=== PATIENT | female | born 1955 | race African-American/Black ===

== ENCOUNTER 2019-06-08 10:36 | Inpatient (IN) | payer MEDICAID ==
[~2019-06-08] VITALS: Ht 170.2 cm; Wt 87.8 kg
[~2019-06-08 10:36] MED LIST: AMLO5TAB9 PO; CINA30 PO; LEVO125 PO
[2019-06-08 12:55] VITALS: BP 129/69
[2019-06-08] MEDS ORDERED: ZOLPIDEM TARTRATE 10 MG TABLET PO PRN (13:00)
[2019-06-08] MEDS ORDERED: LORazepam 1 MG TABLET PO PRN (13:00)
[2019-06-08] MEDS ORDERED: HALOPERIDOL 5 MG TABLET PO PRN (13:00)
[2019-06-08] MEDS ORDERED: ALBUTEROL SULFATE HFA 90 MCG/PUFF 8 GM INHALER IH PRN (15:15)
[2019-06-08] MEDS ORDERED: NICOTINE 14 MG/24 HOUR PATCH TD PRN (15:15)
[2019-06-08] MEDS ORDERED: PETROLATUM,WHITE 28 GM JELLY TP PRN (15:15)
[2019-06-08] MEDS ORDERED: MAG HYDROX/AL HYDROX/SIMETH ES 30 ML SUSPENSION UDCUP PO PRN (15:15)
[2019-06-08] MEDS ORDERED: MAGNESIUM HYDROXIDE SUSPENSION 30 ML UDCUP PO PRN (15:15)
[2019-06-08] MEDS ORDERED: CloNIDine HCL 0.1 MG TABLET PO PRN (15:15)
[2019-06-08] MEDS ORDERED: LOPERAMIDE HCL 2 MG CAPSULE PO PRN (15:15)
[2019-06-08] MEDS ORDERED: DOCUSATE SODIUM 100 MG CAPSULE PO PRN (15:15)
[2019-06-08] MEDS ORDERED: GuaiFENesin/D-METHORPHAN [SUGAR-FREE] 200-20MG/10 ML SYRUP UDCUP PO PRN (15:15)
[2019-06-08] MEDS ORDERED: ONDANSETRON HCL 4 MG TABLET PO PRN (15:15)
[2019-06-08] MEDS ORDERED: ACETAMINOPHEN 325 MG TABLET PO PRN (15:15)
[2019-06-08 17:05] VITALS: BP 147/65
[2019-06-09 00:08] VITALS: BP 142/93
[2019-06-09 05:45] VITALS: BP 126/74
[2019-06-09] MEDS ORDERED: LEVOTHYROXINE SODIUM 25 MCG TABLET PO SCH (06:30)
[2019-06-09 07:31] LABS: BASOPHILS % (AUTO) 0.5 % (0.0-2.0); EOSINOPHILS % (AUTO) 1.4 % (1.0-6.0); HEMATOCRIT 32.4 % (36-46); LYMPHOCYTES # (AUTO) 2.2 K/uL (1.0-4.8); LYMPHOCYTES % (AUTO) 34.5 % (22.0-44.0); MEAN CORPUSCULAR HEMOGLOBIN 30.8 pg (26.0-34.0); MEAN CORPUSCULAR HGB CONC 33.9 G/dL (31.0-37.0); MEAN CORPUSCULAR VOLUME 91 fL (80-100); MONOCYTES # (AUTO) 0.7 K/uL (0.1-1.0); MONOCYTES % (AUTO) 10.7 % (2.0-9.0); NEUTROPHILS # (AUTO) 3.3 K/uL (1.8-7.7); NEUTROPHILS % (AUTO) 52.9 % (40.0-70.0); PLATELET COUNT (AUTO) 237 K/uL (150-450); RED BLOOD CELL COUNT(AUTO) 3.56 MIL/uL (4.00-5.20); RED CELL DISTRIBUTION WIDTH 12.6 % (11.5-14.5)
[2019-06-09 07:52] LABS: AMPHET/METH SCREEN,URINE NEGATIVE (NEGATIVE); BARBITURATE SCREEN, URINE NEGATIVE (NEGATIVE); BENZODIAZEPINES SCREEN,URINE NEGATIVE (NEGATIVE); CANNABINOID SCREEN,URINE NEGATIVE (NEGATIVE); COCAINE SCREEN,URINE NEGATIVE (NEGATIVE); METHADONE SCREEN, URINE NEGATIVE (NEGATIVE); OPIATE SCREEN,URINE NEGATIVE (NEGATIVE)
[2019-06-09 07:55] LABS: PHENCYCLIDINE SCREEN,URINE NEGATIVE (NEGATIVE)
[2019-06-09 07:55] LABS: ALANINE AMINOTRANSFERASE 36 U/L (12-78); ALBUMIN 3.3 g/dL (3.4-5.0); ALKALINE PHOSPHATASE 66 U/L (46-116); ANION GAP 7 mmol/L (8-16); ASPARTATE AMINOTRANSFERASE 56 U/L (15-37); BILIRUBIN,TOTAL 0.4 mg/dL (0.1-1.0); CALCIUM, TOTAL 9.8 mg/dL (8.8-10.5); CARBON DIOXIDE 27 mmol/L (22-29); CHLORIDE 107 mmol/L (98-107); CHOL/HDL RATIO 2.3 (3.9-5.7); CHOLESTEROL 133 mg/dL (131-200); FREE T4 (FREE THYROXINE) 1.06 ng/dL (0.76-1.46); GLOMERULAR FILTR. RATE CALC > 60 mL/min (>60); GLUCOSE,RANDOM 99 mg/dL (70-110); HDL CHOLESTEROL 57 mg/dL (40-60); LDL CHOL (CALC.) 67 mg/dL (0-130); POTASSIUM 3.4 mmol/L (3.5-5.1); SODIUM SERUM 141 mmol/L (136-145); THYROID STIMULATING HORMONE 11.14 uIU/mL (0.36-3.74); TOTAL PROTEIN, SERUM 6.5 g/dL (6.4-8.2); TRIGLYCERIDES 44 mg/dL (15-150); UREA NITROGEN, BLOOD 13 mg/dL (7-18)
[2019-06-09 07:58] LABS: APPEARANCE,URINE CLEAR (CLEAR); BILIRUBIN,URINE NEGATIVE (NEGATIVE); GLUCOSE, URINE (UA) NEGATIVE (NEGATIVE); KETONES,URINE NEGATIVE (NEGATIVE); LEUKOCYTE ESTERASE ,URINE NEGATIVE (NEGATIVE); NITRATE,URINE NEGATIVE (NEGATIVE); OCCULT BLOOD,URINE NEGATIVE (NEGATIVE); PROTEIN,URINE NEGATIVE (NEGATIVE); UROBILINOGEN,URINE 0.2 mg/dL (<=1.0)
[2019-06-09 07:58] LABS: HEMOGLOBIN A1C 5.4 % (4.5-6.2)
[2019-06-09 08:26] VITALS: BP 139/79
[2019-06-09] MEDS: AmLODIPine BESYLATE 5 MG TABLET PO SCH (08:58)
[2019-06-09] MEDS ORDERED: POTASSIUM CHLORIDE 20 MEQ ER TABLET PO ONE (09:15)
[2019-06-09] MEDS: ESCITALOPRAM OXALATE 10 MG TABLET PO SCH (12:28)
[2019-06-09] MEDS: OLANZapine 10 MG TABLET PO SCH ×2 (12:28→21:00)
[2019-06-09] MEDS ORDERED: ONDANSETRON HCL 4 MG TABLET PO PRN (12:30)
[2019-06-09] MEDS ORDERED: NICOTINE 14 MG/24 HOUR PATCH TD PRN (12:30)
[2019-06-09] MEDS ORDERED: GuaiFENesin/D-METHORPHAN [SUGAR-FREE] 200-20MG/10 ML SYRUP UDCUP PO PRN (12:30)
[2019-06-09] MEDS ORDERED: ACETAMINOPHEN 325 MG TABLET PO PRN (12:30)
[2019-06-09] MEDS ORDERED: DOCUSATE SODIUM 100 MG CAPSULE PO PRN (12:30)
[2019-06-09] MEDS ORDERED: CloNIDine HCL 0.1 MG TABLET PO PRN (12:30)
[2019-06-09] MEDS ORDERED: MAG HYDROX/AL HYDROX/SIMETH ES 30 ML SUSPENSION UDCUP PO PRN (12:30)
[2019-06-09] MEDS ORDERED: LOPERAMIDE HCL 2 MG CAPSULE PO PRN (12:30)
[2019-06-09] MEDS ORDERED: ALBUTEROL SULFATE HFA 90 MCG/PUFF 8 GM INHALER IH PRN (12:30)
[2019-06-09] MEDS ORDERED: MAGNESIUM HYDROXIDE SUSPENSION 30 ML UDCUP PO PRN (12:30)
[2019-06-09] MEDS ORDERED: PETROLATUM,WHITE 28 GM JELLY TP PRN (12:30)
[2019-06-09 16:13] VITALS: BP 140/73
[2019-06-10 04:55] VITALS: BP 131/86
[2019-06-10] MEDS: LEVOTHYROXINE SODIUM 125 MCG TABLET PO SCH (06:29)
[2019-06-10 07:40] LABS: BASOPHILS % (AUTO) 1.2 % (0.0-2.0); EOSINOPHILS % (AUTO) 4.8 % (1.0-6.0); HEMATOCRIT 31.8 % (36-46); HEMOGLOBIN 10.7 g/dL (12.0-16.0); LYMPHOCYTES # (AUTO) 1.5 K/uL (1.0-4.8); LYMPHOCYTES % (AUTO) 41.3 % (22.0-44.0); MEAN CORPUSCULAR HEMOGLOBIN 30.9 pg (26.0-34.0); MEAN CORPUSCULAR HGB CONC 33.6 G/dL (31.0-37.0); MEAN CORPUSCULAR VOLUME 92 fL (80-100); MONOCYTES # (AUTO) 0.5 K/uL (0.1-1.0); MONOCYTES % (AUTO) 13.9 % (2.0-9.0); NEUTROPHILS # (AUTO) 1.4 K/uL (1.8-7.7); NEUTROPHILS % (AUTO) 38.8 % (40.0-70.0); PLATELET COUNT (AUTO) 222 K/uL (150-450); RED BLOOD CELL COUNT(AUTO) 3.46 MIL/uL (4.00-5.20); RED CELL DISTRIBUTION WIDTH 12.7 % (11.5-14.5)
[2019-06-10 08:35] VITALS: BP 135/71
[2019-06-10] MEDS: ESCITALOPRAM OXALATE 10 MG TABLET PO SCH (09:00)
[2019-06-10] MEDS: AmLODIPine BESYLATE 5 MG TABLET PO SCH (09:00)
[2019-06-10] MEDS: OLANZapine 10 MG TABLET PO SCH ×2 (09:00→21:00)
[2019-06-10] MEDS: FERROUS SULFATE 325 MG EC TABLET PO SCH ×2 (12:43→16:56)
[2019-06-10 17:54] VITALS: BP 140/65
[2019-06-11] VITALS: BP 135/86
[2019-06-11] MEDS: LEVOTHYROXINE SODIUM 125 MCG TABLET PO SCH (06:35)
[2019-06-11] MEDS: FERROUS SULFATE 325 MG EC TABLET PO SCH ×3 (07:00→16:40)
[2019-06-11] MEDS: OLANZapine 10 MG TABLET PO SCH ×2 (08:23→20:35)
[2019-06-11] MEDS: AmLODIPine BESYLATE 5 MG TABLET PO SCH (08:23)
[2019-06-11] MEDS: ESCITALOPRAM OXALATE 10 MG TABLET PO SCH (08:23)
[2019-06-11 08:30] VITALS: BP 138/70
[2019-06-11 16:16] VITALS: BP 125/71
[2019-06-12 00:36] VITALS: BP 145/81
[2019-06-12] MEDS: FERROUS SULFATE 325 MG EC TABLET PO SCH ×3 (06:36→16:51)
[2019-06-12] MEDS: LEVOTHYROXINE SODIUM 125 MCG TABLET PO SCH (06:36)
[2019-06-12 08:22] VITALS: BP 130/78
[2019-06-12] MEDS: ESCITALOPRAM OXALATE 10 MG TABLET PO SCH (08:39)
[2019-06-12] MEDS: AmLODIPine BESYLATE 5 MG TABLET PO SCH (08:40)
[2019-06-12] MEDS: OLANZapine 10 MG TABLET PO SCH ×2 (08:40→21:00)
[2019-06-12 16:00] VITALS: BP 139/82
[2019-06-13 06:34] VITALS: BP 139/78
[2019-06-13] MEDS: LEVOTHYROXINE SODIUM 125 MCG TABLET PO SCH (06:44)
[2019-06-13] MEDS: FERROUS SULFATE 325 MG EC TABLET PO SCH ×3 (06:44→17:00)
[2019-06-13] MEDS: ESCITALOPRAM OXALATE 10 MG TABLET PO SCH (09:00)
[2019-06-13] MEDS: OLANZapine 10 MG TABLET PO SCH ×2 (09:00→21:00)
[2019-06-13] MEDS: AmLODIPine BESYLATE 5 MG TABLET PO SCH (09:00)
[2019-06-13 09:35] VITALS: BP 142/77
[2019-06-14 00:55] VITALS: BP 145/84
[2019-06-14] MEDS: LEVOTHYROXINE SODIUM 125 MCG TABLET PO SCH (06:44)
[2019-06-14] MEDS: FERROUS SULFATE 325 MG EC TABLET PO SCH ×3 (06:44→16:55)
[2019-06-14] MEDS: OLANZapine 10 MG TABLET PO SCH ×2 (08:56→20:21)
[2019-06-14] MEDS: ESCITALOPRAM OXALATE 10 MG TABLET PO SCH (08:56)
[2019-06-14] MEDS: AmLODIPine BESYLATE 5 MG TABLET PO SCH (08:56)
[2019-06-15 00:37] VITALS: BP 158/77
[2019-06-15] MEDS: FERROUS SULFATE 325 MG EC TABLET PO SCH ×3 (06:36→17:00)
[2019-06-15] MEDS: LEVOTHYROXINE SODIUM 125 MCG TABLET PO SCH (06:36)
[2019-06-15 08:11] VITALS: BP 154/87
[2019-06-15] MEDS: ESCITALOPRAM OXALATE 10 MG TABLET PO SCH ×2 (08:43→09:00)
[2019-06-15] MEDS: AmLODIPine BESYLATE 5 MG TABLET PO SCH ×2 (08:43→09:00)
[2019-06-15] MEDS: OLANZapine 10 MG TABLET PO SCH ×3 (08:43→20:40)
[2019-06-15 16:33] VITALS: BP 142/91
[2019-06-16 03:43] VITALS: BP 140/90
[2019-06-16] MEDS: LEVOTHYROXINE SODIUM 125 MCG TABLET PO SCH (06:32)
[2019-06-16] MEDS: FERROUS SULFATE 325 MG EC TABLET PO SCH ×3 (06:48→16:42)
[2019-06-16 08:25] VITALS: BP 156/77
[2019-06-16] MEDS: AmLODIPine BESYLATE 5 MG TABLET PO SCH (08:41)
[2019-06-16] MEDS: ESCITALOPRAM OXALATE 10 MG TABLET PO SCH (08:41)
[2019-06-16] MEDS: OLANZapine 10 MG TABLET PO SCH ×2 (08:41→21:00)
[2019-06-16 16:29] VITALS: BP 178/78
[2019-06-16 21:31] VITALS: BP 140/76
[2019-06-17 05:56] VITALS: BP 143/77
[2019-06-17] MEDS: LEVOTHYROXINE SODIUM 125 MCG TABLET PO SCH ×2 (06:30→06:36)
[2019-06-17] MEDS: FERROUS SULFATE 325 MG EC TABLET PO SCH ×4 (06:36→17:00)
[2019-06-17] MEDS: OLANZapine 10 MG TABLET PO SCH ×2 (09:00→21:00)
[2019-06-17] MEDS: ESCITALOPRAM OXALATE 10 MG TABLET PO SCH (09:00)
[2019-06-17] MEDS: AmLODIPine BESYLATE 5 MG TABLET PO SCH (09:00)
[2019-06-17 16:08] VITALS: BP 141/93
[2019-06-18] MEDS: LEVOTHYROXINE SODIUM 125 MCG TABLET PO SCH (06:30)
[2019-06-18] MEDS: FERROUS SULFATE 325 MG EC TABLET PO SCH ×3 (06:35→17:00)
[2019-06-18 06:44] VITALS: BP 133/78
[2019-06-18 08:18] VITALS: BP 137/86
[2019-06-18] MEDS ORDERED: HALOPERIDOL LACTATE 5 MG/ML VIAL IM PRN (09:00)
[2019-06-18] MEDS: OLANZapine 10 MG TABLET PO SCH ×2 (11:07→20:30)
[2019-06-18] MEDS: ESCITALOPRAM OXALATE 10 MG TABLET PO SCH (11:07)
[2019-06-18] MEDS: AmLODIPine BESYLATE 5 MG TABLET PO SCH (11:07)
[2019-06-18 16:09] VITALS: BP 133/73
[2019-06-19] MEDS ORDERED: OLAN10TA3 PO (02:57)
[2019-06-19] MEDS ORDERED: ESCI10TA PO (03:01)
[2019-06-19 05:29] VITALS: BP 158/87
[2019-06-19] MEDS: LEVOTHYROXINE SODIUM 125 MCG TABLET PO SCH (06:37)
[2019-06-19] MEDS: FERROUS SULFATE 325 MG EC TABLET PO SCH ×3 (06:37→17:21)
[2019-06-19 08:32] VITALS: BP 140/71
[2019-06-19] MEDS: OLANZapine 10 MG TABLET PO SCH ×2 (08:54→20:23)
[2019-06-19] MEDS: AmLODIPine BESYLATE 5 MG TABLET PO SCH (08:54)
[2019-06-19] MEDS: ESCITALOPRAM OXALATE 10 MG TABLET PO SCH (08:54)
[2019-06-19 16:17] VITALS: BP 127/57
[2019-06-20 00:37] VITALS: BP 144/70
[2019-06-20] MEDS: FERROUS SULFATE 325 MG EC TABLET PO SCH ×3 (06:27→17:09)
[2019-06-20] MEDS: LEVOTHYROXINE SODIUM 125 MCG TABLET PO SCH (06:27)
[2019-06-20] MEDS: ESCITALOPRAM OXALATE 10 MG TABLET PO SCH (08:29)
[2019-06-20] MEDS: OLANZapine 10 MG TABLET PO SCH ×2 (08:29→20:20)
[2019-06-20] MEDS: AmLODIPine BESYLATE 5 MG TABLET PO SCH (08:29)
[2019-06-20 08:36] VITALS: BP 122/70
[2019-06-20 16:09] VITALS: BP 140/78
[2019-06-21 02:52] VITALS: BP 147/85
[2019-06-21] MEDS: LEVOTHYROXINE SODIUM 125 MCG TABLET PO SCH (07:06)
[2019-06-21] MEDS: FERROUS SULFATE 325 MG EC TABLET PO SCH ×3 (07:06→16:11)
[2019-06-21 08:20] VITALS: BP 137/89
[2019-06-21] MEDS: OLANZapine 10 MG TABLET PO SCH ×2 (08:43→20:30)
[2019-06-21] MEDS: ESCITALOPRAM OXALATE 10 MG TABLET PO SCH (08:43)
[2019-06-21] MEDS: AmLODIPine BESYLATE 5 MG TABLET PO SCH (08:49)
[2019-06-21 16:14] VITALS: BP 140/70
[2019-06-22 02:22] VITALS: BP 140/87
[2019-06-22] MEDS: LEVOTHYROXINE SODIUM 125 MCG TABLET PO SCH (06:39)
[2019-06-22] MEDS: FERROUS SULFATE 325 MG EC TABLET PO SCH ×3 (06:39→17:00)
[2019-06-22 07:40] LABS: BASOPHILS % (AUTO) 0.9 % (0.0-2.0); EOSINOPHILS % (AUTO) 2.2 % (1.0-6.0); HEMATOCRIT 33.9 % (36-46); HEMOGLOBIN 11.3 g/dL (12.0-16.0); LYMPHOCYTES # (AUTO) 1.9 K/uL (1.0-4.8); LYMPHOCYTES % (AUTO) 37.9 % (22.0-44.0); MEAN CORPUSCULAR HEMOGLOBIN 30.9 pg (26.0-34.0); MEAN CORPUSCULAR HGB CONC 33.4 G/dL (31.0-37.0); MEAN CORPUSCULAR VOLUME 93 fL (80-100); MONOCYTES # (AUTO) 0.5 K/uL (0.1-1.0); MONOCYTES % (AUTO) 10.8 % (2.0-9.0); NEUTROPHILS # (AUTO) 2.4 K/uL (1.8-7.7); NEUTROPHILS % (AUTO) 48.2 % (40.0-70.0); PLATELET COUNT (AUTO) 259 K/uL (150-450); RED BLOOD CELL COUNT(AUTO) 3.66 MIL/uL (4.00-5.20); RED CELL DISTRIBUTION WIDTH 13.1 % (11.5-14.5)
[2019-06-22 08:40] VITALS: BP 136/74
[2019-06-22] MEDS: OLANZapine 10 MG TABLET PO SCH ×2 (09:00→21:00)
[2019-06-22] MEDS: AmLODIPine BESYLATE 5 MG TABLET PO SCH (09:00)
[2019-06-22] MEDS: ESCITALOPRAM OXALATE 10 MG TABLET PO SCH (09:00)
[2019-06-22 16:14] VITALS: BP 142/70
[2019-06-23 04:06] VITALS: BP 155/73
[2019-06-23] MEDS: LEVOTHYROXINE SODIUM 125 MCG TABLET PO SCH (06:50)
[2019-06-23] MEDS: FERROUS SULFATE 325 MG EC TABLET PO SCH ×3 (06:50→17:21)
[2019-06-23 08:32] VITALS: BP 157/85
[2019-06-23] MEDS: ESCITALOPRAM OXALATE 10 MG TABLET PO SCH (08:42)
[2019-06-23] MEDS: AmLODIPine BESYLATE 5 MG TABLET PO SCH (08:42)
[2019-06-23] MEDS: OLANZapine 10 MG TABLET PO SCH ×2 (08:42→20:58)
[2019-06-23 16:26] VITALS: BP 146/75
[2019-06-24 04:50] VITALS: BP 140/67
[2019-06-24] MEDS: LEVOTHYROXINE SODIUM 125 MCG TABLET PO SCH (06:40)
[2019-06-24] MEDS: FERROUS SULFATE 325 MG EC TABLET PO SCH ×3 (06:40→11:51)
[2019-06-24] MEDS: OLANZapine 10 MG TABLET PO SCH (08:26)
[2019-06-24] MEDS: ESCITALOPRAM OXALATE 10 MG TABLET PO SCH (08:27)
[2019-06-24] MEDS: AmLODIPine BESYLATE 5 MG TABLET PO SCH (08:27)
[2019-06-24 08:30] VITALS: BP 154/81
== END 2019-06-24 15:05 | disposition left against medical advice (07) | DRG 750 ==
LOC: B2S 13:02
PROVIDERS: ADMIT Psychiatry & Neurology Child & Adolescent Psychiatry; ATTEND Psychiatry & Neurology Child & Adolescent Psychiatry
DX: F20.0 Paranoid schizophrenia (principal); D72.819 Decreased white blood cell count, unspecified; E03.9 Hypothyroidism, unspecified; E87.6 Hypokalemia; F10.10 Alcohol abuse, uncomplicated; F32.9 Major depressive disorder, single episode, unspecified; F41.9 Anxiety disorder, unspecified; I10 Essential (primary) hypertension; K59.00 Constipation, unspecified; Z90.710 Acquired absence of both cervix and uterus; M54.9 Dorsalgia, unspecified; G89.29 Other chronic pain; Z53.29 Procedure and treatment not carried out because of patient's decision for other reasons
CPT/HCPCS: 80307; 83036; 84132; 84439; 84443; 87081; J1630

== ENCOUNTER 2019-11-30 13:28 | Emergency (ER) | payer MEDICAID, OTHER ==
[~2019-11-30] VITALS: Ht 175.3 cm; Wt 100.0 kg
[2019-11-30 15:50] LABS: EOSINOPHILS % (AUTO) 2.9 % (1.0-6.0); HEMATOCRIT 31.2 % (36-46); HEMOGLOBIN 10.3 g/dL (12.0-16.0); LYMPHOCYTES % (AUTO) 37.1 % (22.0-44.0); MEAN CORPUSCULAR VOLUME 94 fL (80-100); MONOCYTES # (AUTO) 0.6 K/uL (0.1-1.0); MONOCYTES % (AUTO) 11.1 % (2.0-9.0); NEUTROPHILS # (AUTO) 2.6 K/uL (1.8-7.7); NEUTROPHILS % (AUTO) 47.9 % (40.0-70.0); PLATELET COUNT (AUTO) 217 K/uL (150-450); RED BLOOD CELL COUNT(AUTO) 3.33 MIL/uL (4.00-5.20); RED CELL DISTRIBUTION WIDTH 13.4 % (11.5-14.5)
[2019-11-30 16:07] LABS: ANION GAP 10 mmol/L (8-16); CARBON DIOXIDE 26 mmol/L (22-29); CHLORIDE 108 mmol/L (98-107); CREATININE 1.08 mg/dL (0.60-1.30); GLOMERULAR FILTR. RATE CALC > 60 mL/min (>60); GLUCOSE,RANDOM 104 mg/dL (70-110); POTASSIUM 3.8 mmol/L (3.5-5.1); SODIUM SERUM 144 mmol/L (136-145); UREA NITROGEN, BLOOD 15 mg/dL (7-18)
[2019-11-30 16:10] LABS: B-TYPE NATRIURETIC PEPTIDE 181 pg/mL (0-100)
[2019-11-30 16:15] LABS: ALANINE AMINOTRANSFERASE 80 U/L (12-78); ALKALINE PHOSPHATASE 91 U/L (46-116); ASPARTATE AMINOTRANSFERASE 55 U/L (15-37); BILIRUBIN,TOTAL 0.3 mg/dL (0.1-1.0); FREE T4 (FREE THYROXINE) 0.89 ng/dL (0.76-1.46); THYROID STIMULATING HORMONE 3.19 uIU/mL (0.36-3.74); TOTAL PROTEIN, SERUM 6.5 g/dL (6.4-8.2)
[2019-11-30 16:24] VITALS: BP 146/76
== END 2019-11-30 16:59 | disposition home or self-care (01) ==
LOC: EMS 13:31
DX: M79.89 Other specified soft tissue disorders (principal); J02.9 Acute pharyngitis, unspecified; F31.9 Bipolar disorder, unspecified; E03.9 Hypothyroidism, unspecified
CPT/HCPCS: 84439; 84443; 93005

== ENCOUNTER 2021-06-15 13:02 | Emergency (ER) | payer MEDICARE, OTHER | END 2021-06-15 14:14 | disposition left against medical advice (07) | LOC: EMS 13:02 | DX: J02.9 Acute pharyngitis, unspecified (principal); Z53.21 Procedure and treatment not carried out due to patient leaving prior to being seen by health care provider ==

== ENCOUNTER 2021-12-26 17:52 | Inpatient (IN) | payer MEDICARE, OTHER ==
[~2021-12-26] VITALS: Ht 172.7 cm; Wt 96.5 kg
[2021-12-26 18:56] LABS: AMPHET/METH SCREEN,URINE NEGATIVE (NEGATIVE); BARBITURATE SCREEN, URINE NEGATIVE (NEGATIVE); BENZODIAZEPINES SCREEN,URINE NEGATIVE (NEGATIVE); CANNABINOID SCREEN,URINE NEGATIVE (NEGATIVE); COCAINE SCREEN,URINE NEGATIVE (NEGATIVE); METHADONE SCREEN, URINE NEGATIVE (NEGATIVE); OPIATE SCREEN,URINE NEGATIVE (NEGATIVE); PHENCYCLIDINE SCREEN,URINE NEGATIVE (NEGATIVE)
[2021-12-26] MEDS ORDERED: SODIUM CHLORIDE 0.9% 1,000 ML IV ONE ×3 (19:00→20:30)
[2021-12-26 19:41] LABS: COVID AG,FIA SOURCE NASOPHARYNGEAL
[2021-12-26 19:47] LABS: BASOPHILS % (AUTO) 0.2 % (0.0-2.0); EOSINOPHILS % (AUTO) 0 % (1.0-6.0); HEMATOCRIT 43.2 % (36-46); HEMOGLOBIN 14.2 g/dL (12.0-16.0); LYMPHOCYTES # (AUTO) 1.2 K/uL (1.0-4.8); LYMPHOCYTES % (AUTO) 9.1 % (22.0-44.0); MEAN CORPUSCULAR HEMOGLOBIN 29.5 pg (26.0-34.0); MEAN CORPUSCULAR HGB CONC 32.8 G/dL (31.0-37.0); MEAN CORPUSCULAR VOLUME 90 fL (80-100); MONOCYTES # (AUTO) 1.2 K/uL (0.1-1.0); MONOCYTES % (AUTO) 8.9 % (2.0-9.0); NEUTROPHILS # (AUTO) 11.1 K/uL (1.8-7.7); NEUTROPHILS % (AUTO) 81.8 % (40.0-70.0); PLATELET COUNT (AUTO) 137 K/uL (150-450); RED CELL DISTRIBUTION WIDTH 13.4 % (11.5-14.5)
[2021-12-26 19:54] LABS: ANION GAP 17 mmol/L (8-16); CALCIUM, TOTAL 11.4 mg/dL (8.8-10.5); CARBON DIOXIDE 20 mmol/L (22-29); CHLORIDE 118 mmol/L (98-107); GLUCOSE,RANDOM 144 mg/dL (70-110); SODIUM SERUM 155 mmol/L (136-145); UREA NITROGEN, BLOOD 73 mg/dL (7-18)
[2021-12-26 19:56] LABS: GLOMERULAR FILTR. RATE CALC 14 mL/min (>60)
[2021-12-26 20:01] LABS: AMMONIA 29 umol/L (11-32)
[2021-12-26 20:09] LABS: ALANINE AMINOTRANSFERASE 88 U/L (12-78); ALBUMIN 3.9 g/dL (3.4-5.0); ALKALINE PHOSPHATASE 64 U/L (46-116); ASPARTATE AMINOTRANSFERASE 385 U/L (15-37); BILIRUBIN,TOTAL 1.5 mg/dL (0.1-1.0); TOTAL PROTEIN, SERUM 8.7 g/dL (6.4-8.2)
[2021-12-26 20:12] LABS: CREATINE KINASE, TOTAL ONLY 19269 U/L (26-192)
[2021-12-26] MEDS ORDERED: ONDANSETRON HCL 4 MG/2 ML VIAL IVP PRN ×2 (20:30→20:45)
[2021-12-26] MEDS ORDERED: ACETAMINOPHEN 325 MG TABLET PO PRN (20:30)
[2021-12-26 20:52] LABS: APPEARANCE,URINE CLEAR (CLEAR); GLUCOSE, URINE (UA) NEGATIVE (NEGATIVE); LEUKOCYTE ESTERASE ,URINE NEGATIVE (NEGATIVE); NITRATE,URINE NEGATIVE (NEGATIVE); OCCULT BLOOD,URINE LARGE (NEGATIVE); PH,URINE 5.5 (5.0-8.0); PROTEIN,URINE 100-200,SEE CONFIRM mg/dL (NEGATIVE); SPECIFIC GRAVITIY, URINE 1.029 (1.003-1.030)
[2021-12-26 20:59] LABS: AMPHET/METH SCREEN,URINE NEGATIVE (NEGATIVE); BARBITURATE SCREEN, URINE NEGATIVE (NEGATIVE); BENZODIAZEPINES SCREEN,URINE NEGATIVE (NEGATIVE); CANNABINOID SCREEN,URINE NEGATIVE (NEGATIVE); COCAINE SCREEN,URINE NEGATIVE (NEGATIVE); METHADONE SCREEN, URINE NEGATIVE (NEGATIVE); OPIATE SCREEN,URINE NEGATIVE (NEGATIVE)
[2021-12-26 21:12] LABS: BILIRUBIN,URINE SMALL (NEGATIVE)
[2021-12-26 21:13] LABS: PHENCYCLIDINE SCREEN,URINE NEGATIVE (NEGATIVE)
[2021-12-26 21:19] LABS: THYROID STIMULATING HORMONE 0.31 uIU/mL (0.36-3.74)
[2021-12-26 21:22] LABS: INR 1.1 (0.9-1.1); PROTHROMBIN TIME 11.9 SEC (9.4-11.6)
[2021-12-26] MEDS ORDERED: DEXTROSE 5%-WATER 1,000 ML IV ONE (21:30)
[2021-12-26 22:04] LABS: BACTERIA,URINE Few /HPF (None Seen); RBC,URINE 0-2 /HPF (0-2); SULFOSALICYLIC ACID,URINE 2+ (Negative); WBC,URINE 0-2 /HPF (0-5)
[2021-12-26 22:06] LABS: COARSE GRANULAR CASTS,URINE 0-2 /LPF (None Seen)
[2021-12-26] MEDS: SODIUM CHLORIDE 0.45% 1,000 ML IV SCH (23:00)
[2021-12-26] MEDS: DOCUSATE SODIUM 100 MG CAPSULE PO SCH (23:00)
[2021-12-26 23:34] VITALS: BP 115/65
[2021-12-26] MEDS: PANTOPRAZOLE SODIUM 40 MG/VIAL IVP SCH (23:42)
[2021-12-26] MEDS: HEPARIN SODIUM,PORCINE 5,000 UNITS/ML VIAL SQ SCH (23:42)
[2021-12-27 05:14] VITALS: BP 140/77
[2021-12-27 05:52] LABS: BASOPHILS % (AUTO) 0.2 % (0.0-2.0); EOSINOPHILS % (AUTO) 0 % (1.0-6.0); HEMATOCRIT 37.3 % (36-46); HEMOGLOBIN 12.6 g/dL (12.0-16.0); LYMPHOCYTES # (AUTO) 1.5 K/uL (1.0-4.8); LYMPHOCYTES % (AUTO) 14.1 % (22.0-44.0); MEAN CORPUSCULAR HEMOGLOBIN 30.4 pg (26.0-34.0); MEAN CORPUSCULAR HGB CONC 33.7 G/dL (31.0-37.0); MEAN CORPUSCULAR VOLUME 90 fL (80-100); MONOCYTES # (AUTO) 0.9 K/uL (0.1-1.0); NEUTROPHILS # (AUTO) 8.4 K/uL (1.8-7.7); NEUTROPHILS % (AUTO) 77.7 % (40.0-70.0); PLATELET COUNT (AUTO) 101 K/uL (150-450); RED BLOOD CELL COUNT(AUTO) 4.14 MIL/uL (4.00-5.20); RED CELL DISTRIBUTION WIDTH 13.7 % (11.5-14.5)
[2021-12-27 05:58] LABS: APPEARANCE,URINE HAZY (CLEAR); BILIRUBIN,URINE NEGATIVE (NEGATIVE); GLUCOSE, URINE (UA) NEGATIVE (NEGATIVE); KETONES,URINE TRACE mg/dL (NEGATIVE); LEUKOCYTE ESTERASE ,URINE NEGATIVE (NEGATIVE); NITRATE,URINE NEGATIVE (NEGATIVE); OCCULT BLOOD,URINE LARGE (NEGATIVE); PH,URINE 5.5 (5.0-8.0); PROTEIN,URINE 100-200,SEE CONFIRM mg/dL (NEGATIVE); SPECIFIC GRAVITIY, URINE 1.026 (1.003-1.030); UROBILINOGEN,URINE <=1.0 mg/dL (<=1.0)
[2021-12-27 06:06] LABS: BILIRUBIN,TOTAL 1.1 mg/dL (0.1-1.0); CALCIUM, TOTAL 10.1 mg/dL (8.8-10.5); CREATININE 2.93 mg/dL (0.60-1.30); POTASSIUM 3.6 mmol/L (3.5-5.1); TOTAL PROTEIN, SERUM 7.2 g/dL (6.4-8.2)
[2021-12-27 06:12] LABS: BACTERIA,URINE None Seen /HPF (None Seen); COARSE GRANULAR CASTS,URINE 0-2 /LPF (None Seen); WBC,URINE 0-2 /HPF (0-5)
[2021-12-27] MEDS: SODIUM CHLORIDE 0.45% 1,000 ML IV SCH (06:45)
[2021-12-27 07:35] VITALS: BP 141/73
[2021-12-27] MEDS: DOCUSATE SODIUM 100 MG CAPSULE PO SCH ×2 (08:46→20:03)
[2021-12-27] MEDS: PANTOPRAZOLE SODIUM 40 MG/VIAL IVP SCH (08:57)
[2021-12-27] MEDS: HEPARIN SODIUM,PORCINE 5,000 UNITS/ML VIAL SQ SCH ×2 (08:57→16:07)
[2021-12-27] MEDS ORDERED: DIGOXIN 250 MCG/ML 2 ML AMP IVP ONE (11:30)
[2021-12-27] MEDS ORDERED: AMIODARONE HCL 150 MG in DEXTROSE 5%-WATER 97 ML IV ONE (11:45)
[2021-12-27] MEDS ORDERED: AMIODARONE HCL 360 MG in DEXTROSE 5%-WATER 242.8 ML IV ONE (11:45)
[2021-12-27 11:48] VITALS: BP 105/66
[2021-12-27 16:05] VITALS: BP 131/69
[2021-12-27 17:32] LABS: CREATININE 2.4 mg/dL (0.60-1.30); MAGNESIUM 2.3 mg/dL (1.80-2.40); PHOSPHORUS 1.8 mg/dL (2.5-4.9); POTASSIUM 3.8 mmol/L (3.5-5.1)
[2021-12-27] MEDS ORDERED: AMIODARONE HCL 540 MG in DEXTROSE 5%-WATER 239.2 ML IV ONE (17:45)
[2021-12-27 18:27] LABS: CREATININE,URINE RANDOM 174.2 mg/dL (30.0-125.0)
[2021-12-27 20:15] VITALS: BP 127/65
[2021-12-27] MEDS ORDERED: DEXTROSE 5%-0.45% SODIUM CHL 1,000 ML IV ONE (22:00)
[2021-12-28] MEDS: HEPARIN SODIUM,PORCINE 5,000 UNITS/ML VIAL SQ SCH ×4 (00:22→23:57)
[2021-12-28 00:28] VITALS: BP 122/62
[2021-12-28 04:36] VITALS: BP 115/64
[2021-12-28 07:19] VITALS: BP 138/80
[2021-12-28] MEDS: DOCUSATE SODIUM 100 MG CAPSULE PO SCH ×3 (08:16→20:13)
[2021-12-28] MEDS: PANTOPRAZOLE SODIUM 40 MG/VIAL IVP SCH (09:00)
[2021-12-28 09:19] LABS: CALCIUM, TOTAL 9.8 mg/dL (8.8-10.5); CREATININE 1.68 mg/dL (0.60-1.30); MAGNESIUM 2.2 mg/dL (1.80-2.40); PHOSPHORUS 1.7 mg/dL (2.5-4.9); POTASSIUM 3.7 mmol/L (3.5-5.1)
[2021-12-28] MEDS ORDERED: SODIUM PHOS,M-BASIC-D-BASIC 30 MMOL in DEXTROSE 5%-WATER 250 ML IV ONE (10:45)
[2021-12-28 11:30] VITALS: BP 122/73
[2021-12-28] MEDS ORDERED: AMIODARONE HCL 750 MG in DEXTROSE 5%-WATER 485 ML IV SCH (11:45)
[2021-12-28 20:05] VITALS: BP 123/63
[2021-12-29 00:21] VITALS: BP 139/78
[2021-12-29 04:54] VITALS: BP 119/68
[2021-12-29 07:34] VITALS: BP 132/70
[2021-12-29] MEDS: HEPARIN SODIUM,PORCINE 5,000 UNITS/ML VIAL SQ SCH ×2 (08:00→16:00)
[2021-12-29] MEDS: PANTOPRAZOLE SODIUM 40 MG/VIAL IVP SCH (08:36)
[2021-12-29] MEDS: METOPROLOL SUCCINATE 25 MG ER TABLET PO SCH (08:36)
[2021-12-29] MEDS: DOCUSATE SODIUM 100 MG CAPSULE PO SCH ×2 (08:36→21:00)
[2021-12-29 11:24] VITALS: BP 117/78
[2021-12-29 15:32] VITALS: BP 132/72
[2021-12-29 20:04] VITALS: BP 120/66
[2021-12-29] MEDS: SODIUM CHLORIDE 0.45% 1,000 ML IV SCH (23:45)
[2021-12-30] VITALS (7 sets, daily range): BP systolic 131–150; BP diastolic 65–77
[2021-12-30] MEDS: HEPARIN SODIUM,PORCINE 5,000 UNITS/ML VIAL SQ SCH ×3 (08:00→16:00)
[2021-12-30 08:37] LABS: GLUCOMETER DEV NAME(LOC) 5N.1C; GLUCOSE,POINT OF CARE 109 MG/DL (70-110)
[2021-12-30] MEDS: DOCUSATE SODIUM 100 MG CAPSULE PO SCH ×2 (09:00→21:00)
[2021-12-30] MEDS: PANTOPRAZOLE SODIUM 40 MG/VIAL IVP SCH (09:00)
[2021-12-30] MEDS: METOPROLOL SUCCINATE 25 MG ER TABLET PO SCH (09:13)
[2021-12-30] MEDS: SODIUM CHLORIDE 0.45% 1,000 ML IV SCH ×2 (09:27→19:45)
[2021-12-30] MEDS: ACETAMINOPHEN 325 MG TABLET PO PRN (20:57)
[2021-12-31 04:32] VITALS: BP 139/73
[2021-12-31] MEDS: SODIUM CHLORIDE 0.45% 1,000 ML IV SCH (05:30)
[2021-12-31 06:02] LABS: CALCIUM, TOTAL 9.5 mg/dL (8.8-10.5); CREATININE 1.2 mg/dL (0.60-1.30); MAGNESIUM 1.6 mg/dL (1.80-2.40); PHOSPHORUS 2.2 mg/dL (2.5-4.9)
[2021-12-31] MEDS ORDERED: MAGNESIUM SULFATE 4 GM/WATER 100 ML IV PRN (06:45)
[2021-12-31] MEDS ORDERED: MAGNESIUM SULFATE 2 GM/WATER 50 ML IV PRN (06:45)
[2021-12-31 07:06] LABS: ALBUMIN 2.4 g/dL (3.4-5.0)
[2021-12-31 07:22] VITALS: BP 144/67
[2021-12-31] MEDS: HEPARIN SODIUM,PORCINE 5,000 UNITS/ML VIAL SQ SCH ×5 (08:00→23:51)
[2021-12-31] MEDS: METOPROLOL SUCCINATE 25 MG ER TABLET PO SCH (08:10)
[2021-12-31] MEDS: POTASSIUM CHLORIDE 20 MEQ ER TABLET PO PRN (08:10)
[2021-12-31] MEDS: MAGNESIUM OXIDE 400 MG TABLET PO PRN ×2 (08:10→17:22)
[2021-12-31] MEDS: DOCUSATE SODIUM 100 MG CAPSULE PO SCH ×2 (08:12→21:00)
[2021-12-31] MEDS: PANTOPRAZOLE SODIUM 40 MG/VIAL IVP SCH (08:12)
[2021-12-31] MEDS ORDERED: SODIUM CHLORIDE 0.9% 250 ML IV ONE (09:00)
[2021-12-31] MEDS: POTASSIUM CHL 10 MEQ/WATER 50 ML IV PRN ×4 (09:23→14:15)
[2021-12-31 15:49] VITALS: BP 160/74
[2022-01-01 04:20] VITALS: BP 109/63
[2022-01-01 06:20] LABS: ANION GAP 10 mmol/L (8-16); CALCIUM, TOTAL 9.9 mg/dL (8.8-10.5); CARBON DIOXIDE 22 mmol/L (22-29); CHLORIDE 106 mmol/L (98-107); CREATININE 1.08 mg/dL (0.60-1.30); GLUCOSE,RANDOM 90 mg/dL (70-110); SODIUM SERUM 138 mmol/L (136-145); UREA NITROGEN, BLOOD 9 mg/dL (7-18)
[2022-01-01 07:35] VITALS: BP 127/58
[2022-01-01 07:40] LABS: GLOMERULAR FILTR. RATE CALC > 60 mL/min (>60); POTASSIUM 2.8 mmol/L (3.5-5.1)
[2022-01-01] MEDS: HEPARIN SODIUM,PORCINE 5,000 UNITS/ML VIAL SQ SCH ×2 (08:00→16:00)
[2022-01-01] MEDS: POTASSIUM CHL 10 MEQ/WATER 50 ML IV SCH ×2 (08:15→09:15)
[2022-01-01] MEDS ORDERED: MAGNESIUM SULFATE 3 GM in DEXTROSE 5%-WATER 100 ML IV ONE (08:15)
[2022-01-01] MEDS ORDERED: POTASSIUM CHLORIDE 20 MEQ ER TABLET PO ONE (08:15)
[2022-01-01] MEDS: METOPROLOL SUCCINATE 25 MG ER TABLET PO SCH (08:30)
[2022-01-01] MEDS: DOCUSATE SODIUM 100 MG CAPSULE PO SCH ×2 (08:30→21:00)
[2022-01-01] MEDS: PANTOPRAZOLE SODIUM 40 MG/VIAL IVP SCH (08:30)
[2022-01-01 11:26] VITALS: BP 145/66
[2022-01-01] MEDS ORDERED: POTASSIUM CHLORIDE 10% 40 MEQ/30 ML LIQUID UDCUP PO ONE (12:15)
[2022-01-01 18:10] LABS: CALCIUM, TOTAL 10.5 mg/dL (8.8-10.5); CREATININE 1.11 mg/dL (0.60-1.30); MAGNESIUM 1.8 mg/dL (1.80-2.40); PHOSPHORUS 1.7 mg/dL (2.5-4.9); POTASSIUM 3.1 mmol/L (3.5-5.1)
[2022-01-02 00:18] VITALS: BP 120/69
[2022-01-02 04:21] VITALS: BP 124/70
[2022-01-02 06:35] LABS: ANION GAP 10 mmol/L (8-16); CALCIUM, TOTAL 9.5 mg/dL (8.8-10.5); CARBON DIOXIDE 21 mmol/L (22-29); CHLORIDE 103 mmol/L (98-107); CREATININE 1.01 mg/dL (0.60-1.30); GLUCOSE,RANDOM 100 mg/dL (70-110); PHOSPHORUS 2.2 mg/dL (2.5-4.9); SODIUM SERUM 134 mmol/L (136-145); UREA NITROGEN, BLOOD 11 mg/dL (7-18)
[2022-01-02 07:10] LABS: GLOMERULAR FILTR. RATE CALC > 60 mL/min (>60)
[2022-01-02] MEDS: METOPROLOL SUCCINATE 25 MG ER TABLET PO SCH (07:48)
[2022-01-02] MEDS: HEPARIN SODIUM,PORCINE 5,000 UNITS/ML VIAL SQ SCH ×3 (07:48→16:00)
[2022-01-02] MEDS: DIVALPROEX SODIUM 250 MG DR TABLET PO SCH ×2 (07:48→20:24)
[2022-01-02] MEDS: PANTOPRAZOLE SODIUM 40 MG/VIAL IVP SCH (07:58)
[2022-01-02] MEDS: DOCUSATE SODIUM 100 MG CAPSULE PO SCH ×2 (07:59→20:24)
[2022-01-02] MEDS ORDERED: POTASSIUM CHLORIDE 20 MEQ ER TABLET PO ONE (08:00)
[2022-01-02] MEDS ORDERED: MAGNESIUM SULFATE 2 GM/WATER 50 ML IV ONE (08:00)
[2022-01-02] MEDS: POTASSIUM CHL 10 MEQ/WATER 50 ML IV SCH ×3 (08:00→09:30)
[2022-01-02] MEDS: SODIUM,POTASSIUM PHOSPHATES POWDER PACKET PO SCH ×2 (11:30→20:24)
[2022-01-02 12:01] VITALS: BP 128/57
[2022-01-02 15:42] VITALS: BP 144/66
[2022-01-02 18:17] LABS: ANION GAP 15 mmol/L (8-16); CALCIUM, TOTAL 10.3 mg/dL (8.8-10.5); CARBON DIOXIDE 23 mmol/L (22-29); CHLORIDE 102 mmol/L (98-107); CREATININE 0.95 mg/dL (0.60-1.30); GLUCOSE,RANDOM 92 mg/dL (70-110); SODIUM SERUM 140 mmol/L (136-145); UREA NITROGEN, BLOOD 11 mg/dL (7-18)
[2022-01-02 18:19] LABS: GLOMERULAR FILTR. RATE CALC > 60 mL/min (>60); POTASSIUM 2.9 mmol/L (3.5-5.1)
[2022-01-02 20:15] VITALS: BP 144/70
[2022-01-02] MEDS: OLANZapine 7.5 MG TABLET PO SCH (20:24)
[2022-01-03 00:17] VITALS: BP 104/58
[2022-01-03 05:05] VITALS: BP 138/65
[2022-01-03 07:39] VITALS: BP 130/67
[2022-01-03] MEDS: HEPARIN SODIUM,PORCINE 5,000 UNITS/ML VIAL SQ SCH ×3 (08:00→15:51)
[2022-01-03] MEDS: DOCUSATE SODIUM 100 MG CAPSULE PO SCH ×2 (08:13→20:47)
[2022-01-03] MEDS: PANTOPRAZOLE SODIUM 40 MG/VIAL IVP SCH (08:13)
[2022-01-03] MEDS: DIVALPROEX SODIUM 250 MG DR TABLET PO SCH ×2 (08:14→20:47)
[2022-01-03] MEDS: METOPROLOL SUCCINATE 25 MG ER TABLET PO SCH (08:14)
[2022-01-03 11:31] VITALS: BP 107/51
[2022-01-03 15:25] VITALS: BP 111/53
[2022-01-03 20:03] VITALS: BP 124/59
[2022-01-03] MEDS: ACETAMINOPHEN 325 MG TABLET PO PRN (20:47)
[2022-01-03] MEDS: OLANZapine 7.5 MG TABLET PO SCH (20:47)
[2022-01-04 05:02] VITALS: BP 114/63
[2022-01-04 07:14] VITALS: BP 120/58
[2022-01-04] MEDS: HEPARIN SODIUM,PORCINE 5,000 UNITS/ML VIAL SQ SCH ×3 (08:00→16:00)
[2022-01-04] MEDS: PANTOPRAZOLE SODIUM 40 MG/VIAL IVP SCH (09:00)
[2022-01-04] MEDS: METOPROLOL SUCCINATE 25 MG ER TABLET PO SCH (09:00)
[2022-01-04] MEDS: DIVALPROEX SODIUM 250 MG DR TABLET PO SCH ×2 (09:00→21:00)
[2022-01-04] MEDS: DOCUSATE SODIUM 100 MG CAPSULE PO SCH ×2 (09:00→20:59)
[2022-01-04 12:46] VITALS: BP 122/72
[2022-01-04 15:38] VITALS: BP 116/78
[2022-01-04 19:41] VITALS: BP 126/64
[2022-01-04] MEDS: ACETAMINOPHEN 325 MG TABLET PO PRN (20:58)
[2022-01-04] MEDS: OLANZapine 7.5 MG TABLET PO SCH (21:00)
[2022-01-05 00:09] VITALS: BP 116/62
[2022-01-05] MEDS: POTASSIUM CHLORIDE 20 MEQ ER TABLET PO PRN ×2 (03:55→09:30)
[2022-01-05] MEDS: ACETAMINOPHEN 325 MG TABLET PO PRN ×2 (03:55→17:58)
[2022-01-05 04:38] VITALS: BP 130/67
[2022-01-05] MEDS: HEPARIN SODIUM,PORCINE 5,000 UNITS/ML VIAL SQ SCH ×5 (08:00→23:56)
[2022-01-05] MEDS: PANTOPRAZOLE SODIUM 40 MG/VIAL IVP SCH (09:00)
[2022-01-05] MEDS: DIVALPROEX SODIUM 250 MG DR TABLET PO SCH ×3 (09:00→20:39)
[2022-01-05] MEDS: DOCUSATE SODIUM 100 MG CAPSULE PO SCH ×3 (09:00→20:42)
[2022-01-05] MEDS: METOPROLOL SUCCINATE 25 MG ER TABLET PO SCH (09:30)
[2022-01-05 10:45] VITALS: BP 115/64
[2022-01-05] MEDS ORDERED: POTASSIUM CHLORIDE 10% 40 MEQ/30 ML LIQUID UDCUP PO ONE (11:00)
[2022-01-05 16:40] VITALS: BP 129/62
[2022-01-05 19:59] VITALS: BP 115/58
[2022-01-05] MEDS: OLANZapine 7.5 MG TABLET PO SCH (20:39)
[2022-01-06 00:48] VITALS: BP 157/74
[2022-01-06 04:04] LABS: ANION GAP 11 mmol/L (8-16); CALCIUM, TOTAL 10.5 mg/dL (8.8-10.5); CARBON DIOXIDE 20 mmol/L (22-29); CHLORIDE 107 mmol/L (98-107); CREATININE 0.96 mg/dL (0.60-1.30); GLUCOSE,RANDOM 115 mg/dL (70-110); PHOSPHORUS 1.6 mg/dL (2.5-4.9); POTASSIUM 4.6 mmol/L (3.5-5.1); SODIUM SERUM 138 mmol/L (136-145); UREA NITROGEN, BLOOD 7 mg/dL (7-18)
[2022-01-06 04:12] LABS: GLOMERULAR FILTR. RATE CALC > 60 mL/min (>60)
[2022-01-06 05:05] VITALS: BP 138/68
[2022-01-06 07:54] VITALS: BP 117/70
[2022-01-06] MEDS: HEPARIN SODIUM,PORCINE 5,000 UNITS/ML VIAL SQ SCH ×2 (08:00→16:00)
[2022-01-06] MEDS: DOCUSATE SODIUM 100 MG CAPSULE PO SCH ×2 (08:11→21:19)
[2022-01-06] MEDS: METOPROLOL SUCCINATE 25 MG ER TABLET PO SCH (08:12)
[2022-01-06] MEDS: DIVALPROEX SODIUM 250 MG DR TABLET PO SCH ×3 (08:12→21:19)
[2022-01-06] MEDS: PANTOPRAZOLE SODIUM 40 MG/VIAL IVP SCH (08:17)
[2022-01-06 11:57] VITALS: BP 109/59
[2022-01-06] MEDS: SODIUM,POTASSIUM PHOSPHATES POWDER PACKET PO SCH ×3 (16:00→21:20)
[2022-01-06 16:24] VITALS: BP 114/61
[2022-01-06 19:40] VITALS: BP 122/52
[2022-01-06] MEDS: OLANZapine 7.5 MG TABLET PO SCH ×2 (21:00→21:20)
[2022-01-06] MEDS: ACETAMINOPHEN 325 MG TABLET PO PRN (21:19)
[2022-01-07 00:51] VITALS: BP 115/66
[2022-01-07 05:13] VITALS: BP 133/51
[2022-01-07 07:24] VITALS: BP 122/60
[2022-01-07] MEDS: HEPARIN SODIUM,PORCINE 5,000 UNITS/ML VIAL SQ SCH ×4 (08:00→23:05)
[2022-01-07] MEDS: PANTOPRAZOLE SODIUM 40 MG/VIAL IVP SCH (08:53)
[2022-01-07] MEDS: DOCUSATE SODIUM 100 MG CAPSULE PO SCH ×3 (08:54→20:24)
[2022-01-07] MEDS: METOPROLOL SUCCINATE 25 MG ER TABLET PO SCH (08:58)
[2022-01-07] MEDS: DIVALPROEX SODIUM 250 MG DR TABLET PO SCH ×2 (08:58→20:20)
[2022-01-07] MEDS: SODIUM,POTASSIUM PHOSPHATES POWDER PACKET PO SCH ×3 (08:58→20:20)
[2022-01-07] MEDS: SODIUM HYPOCHLORITE 0.25% [HALF STRENGTH] 473 ML SOLUTION TP SCH (10:45)
[2022-01-07 11:11] VITALS: BP 118/57
[2022-01-07 15:01] VITALS: BP 124/63
[2022-01-07 19:26] VITALS: BP 112/55
[2022-01-07] MEDS: ACETAMINOPHEN 325 MG TABLET PO PRN ×2 (20:19→20:24)
[2022-01-07] MEDS: OLANZapine 7.5 MG TABLET PO SCH (20:20)
[2022-01-08] VITALS (7 sets, daily range): BP systolic 102–123; BP diastolic 50–63
[2022-01-08] MEDS: HEPARIN SODIUM,PORCINE 5,000 UNITS/ML VIAL SQ SCH ×2 (08:00→15:50)
[2022-01-08] MEDS: DIVALPROEX SODIUM 250 MG DR TABLET PO SCH ×2 (08:42→20:10)
[2022-01-08] MEDS: SODIUM HYPOCHLORITE 0.25% [HALF STRENGTH] 473 ML SOLUTION TP SCH (08:42)
[2022-01-08] MEDS: METOPROLOL SUCCINATE 25 MG ER TABLET PO SCH (08:42)
[2022-01-08] MEDS: DOCUSATE SODIUM 100 MG CAPSULE PO SCH ×2 (08:42→21:27)
[2022-01-08] MEDS: SODIUM,POTASSIUM PHOSPHATES POWDER PACKET PO SCH ×3 (08:42→20:10)
[2022-01-08] MEDS: PANTOPRAZOLE SODIUM 40 MG/VIAL IVP SCH (08:45)
[2022-01-08] MEDS: ACETAMINOPHEN 325 MG TABLET PO PRN (20:03)
[2022-01-08] MEDS: OLANZapine 7.5 MG TABLET PO SCH (20:10)
[2022-01-09 05:27] VITALS: BP 109/54
[2022-01-09 07:10] LABS: ANION GAP 12 mmol/L (8-16); CALCIUM, TOTAL 10.4 mg/dL (8.8-10.5); CARBON DIOXIDE 23 mmol/L (22-29); CHLORIDE 104 mmol/L (98-107); CREATININE 0.84 mg/dL (0.60-1.30); GLUCOSE,RANDOM 110 mg/dL (70-110); POTASSIUM 3.8 mmol/L (3.5-5.1); SODIUM SERUM 139 mmol/L (136-145); UREA NITROGEN, BLOOD 7 mg/dL (7-18)
[2022-01-09 07:12] LABS: GLOMERULAR FILTR. RATE CALC > 60 mL/min (>60)
[2022-01-09] MEDS: HEPARIN SODIUM,PORCINE 5,000 UNITS/ML VIAL SQ SCH ×3 (08:00→15:30)
[2022-01-09 08:02] VITALS: BP 118/52
[2022-01-09] MEDS: PANTOPRAZOLE SODIUM 40 MG/VIAL IVP SCH (08:30)
[2022-01-09] MEDS: DOCUSATE SODIUM 100 MG CAPSULE PO SCH ×2 (08:35→22:30)
[2022-01-09] MEDS: SODIUM HYPOCHLORITE 0.25% [HALF STRENGTH] 473 ML SOLUTION TP SCH (08:39)
[2022-01-09] MEDS: SODIUM,POTASSIUM PHOSPHATES POWDER PACKET PO SCH ×3 (08:39→22:30)
[2022-01-09] MEDS: METOPROLOL SUCCINATE 25 MG ER TABLET PO SCH (08:39)
[2022-01-09] MEDS: DIVALPROEX SODIUM 250 MG DR TABLET PO SCH ×2 (08:39→21:00)
[2022-01-09 11:58] VITALS: BP 120/61
[2022-01-09 15:46] VITALS: BP 110/63
[2022-01-09 19:23] VITALS: BP 126/73
[2022-01-09] MEDS: OLANZapine 7.5 MG TABLET PO SCH (21:00)
[2022-01-09] MEDS: ACETAMINOPHEN 325 MG TABLET PO PRN (22:30)
[2022-01-09 23:54] VITALS: BP 116/63
[2022-01-10 06:14] VITALS: BP 104/58
[2022-01-10 07:58] VITALS: BP 107/50
[2022-01-10] MEDS: HEPARIN SODIUM,PORCINE 5,000 UNITS/ML VIAL SQ SCH ×4 (08:00→23:43)
[2022-01-10] MEDS: DOCUSATE SODIUM 100 MG CAPSULE PO SCH ×2 (08:12→20:26)
[2022-01-10] MEDS: PANTOPRAZOLE SODIUM 40 MG/VIAL IVP SCH (08:13)
[2022-01-10] MEDS: DIVALPROEX SODIUM 250 MG DR TABLET PO SCH ×2 (08:13→20:41)
[2022-01-10] MEDS: METOPROLOL SUCCINATE 25 MG ER TABLET PO SCH (08:13)
[2022-01-10] MEDS: SODIUM,POTASSIUM PHOSPHATES POWDER PACKET PO SCH ×3 (08:13→20:41)
[2022-01-10] MEDS: SODIUM HYPOCHLORITE 0.25% [HALF STRENGTH] 473 ML SOLUTION TP SCH (11:18)
[2022-01-10] MEDS: ACETAMINOPHEN 325 MG TABLET PO PRN (11:20)
[2022-01-10 11:41] VITALS: BP 116/62
[2022-01-10 16:24] VITALS: BP 95/52
[2022-01-10 20:15] VITALS: BP 103/53
[2022-01-10] MEDS ORDERED: SODIUM CHLORIDE 0.9% 250 ML IV ONE (20:16)
[2022-01-10] MEDS: OLANZapine 7.5 MG TABLET PO SCH (20:41)
[2022-01-10 23:56] VITALS: BP 104/56
[2022-01-11 04:08] VITALS: BP 126/60
[2022-01-11 07:22] VITALS: BP 108/58
[2022-01-11] MEDS: HEPARIN SODIUM,PORCINE 5,000 UNITS/ML VIAL SQ SCH ×3 (08:00→23:09)
[2022-01-11] MEDS: PANTOPRAZOLE SODIUM 40 MG/VIAL IVP SCH (08:39)
[2022-01-11] MEDS: SODIUM,POTASSIUM PHOSPHATES POWDER PACKET PO SCH ×3 (08:40→21:00)
[2022-01-11] MEDS: METOPROLOL SUCCINATE 25 MG ER TABLET PO SCH (08:40)
[2022-01-11] MEDS: DIVALPROEX SODIUM 250 MG DR TABLET PO SCH ×2 (08:40→21:00)
[2022-01-11] MEDS: DOCUSATE SODIUM 100 MG CAPSULE PO SCH ×2 (08:40→21:06)
[2022-01-11] MEDS ORDERED: PANTOPRAZOLE SODIUM 40 MG DR TABLET PO ONE (13:00)
[2022-01-11] MEDS: SODIUM HYPOCHLORITE 0.25% [HALF STRENGTH] 473 ML SOLUTION TP SCH (14:42)
[2022-01-11] MEDS: OLANZapine 7.5 MG TABLET PO SCH (21:00)
[2022-01-12 04:45] VITALS: BP 109/64
[2022-01-12] MEDS: HEPARIN SODIUM,PORCINE 5,000 UNITS/ML VIAL SQ SCH ×2 (08:00→16:00)
[2022-01-12 08:21] VITALS: BP 110/68
[2022-01-12 08:38] LABS: BASOPHILS % (AUTO) 0.3 % (0.0-2.0); EOSINOPHILS % (AUTO) 0.2 % (1.0-6.0); HEMATOCRIT 34.6 % (36-46); HEMOGLOBIN 11.4 g/dL (12.0-16.0); MEAN CORPUSCULAR VOLUME 91 fL (80-100); MONOCYTES # (AUTO) 1.1 K/uL (0.1-1.0); MONOCYTES % (AUTO) 9.4 % (2.0-9.0); NEUTROPHILS # (AUTO) 8.8 K/uL (1.8-7.7); NEUTROPHILS % (AUTO) 73.1 % (40.0-70.0); PLATELET COUNT (AUTO) 250 K/uL (150-450); RED BLOOD CELL COUNT(AUTO) 3.81 MIL/uL (4.00-5.20)
[2022-01-12 08:56] LABS: ALBUMIN 2.2 g/dL (3.4-5.0); BILIRUBIN,TOTAL 0.6 mg/dL (0.1-1.0); CREATININE 1.87 mg/dL (0.60-1.30); MAGNESIUM 1.8 mg/dL (1.80-2.40); PHOSPHORUS 3.7 mg/dL (2.5-4.9); POTASSIUM 5.2 mmol/L (3.5-5.1); TOTAL PROTEIN, SERUM 7.2 g/dL (6.4-8.2)
[2022-01-12] MEDS: SODIUM,POTASSIUM PHOSPHATES POWDER PACKET PO SCH (09:00)
[2022-01-12] MEDS: DIVALPROEX SODIUM 250 MG DR TABLET PO SCH ×2 (09:00→21:00)
[2022-01-12] MEDS: METOPROLOL SUCCINATE 25 MG ER TABLET PO SCH (09:00)
[2022-01-12] MEDS: SODIUM HYPOCHLORITE 0.25% [HALF STRENGTH] 473 ML SOLUTION TP SCH (09:00)
[2022-01-12] MEDS: DOCUSATE SODIUM 100 MG CAPSULE PO SCH ×2 (09:00→21:00)
[2022-01-12] MEDS ORDERED: SODIUM CHLORIDE 0.9% IRRIG BTL 1,000 ML IRRIG ONE (12:04)
[2022-01-12] MEDS: SODIUM CHLORIDE 0.9% 1,000 ML IV SCH (14:00)
[2022-01-12 15:00] VITALS: BP 112/58
[2022-01-12 20:03] VITALS: BP 112/64
[2022-01-12] MEDS: OLANZapine 7.5 MG TABLET PO SCH (21:00)
[2022-01-13 04:35] VITALS: BP 115/66
[2022-01-13] MEDS: SODIUM CHLORIDE 0.9% 1,000 ML IV SCH ×2 (05:24→20:08)
[2022-01-13] MEDS: HEPARIN SODIUM,PORCINE 5,000 UNITS/ML VIAL SQ SCH ×3 (08:00→16:00)
[2022-01-13 08:02] VITALS: BP 101/56
[2022-01-13] MEDS: DIVALPROEX SODIUM 250 MG DR TABLET PO SCH ×2 (08:52→21:00)
[2022-01-13] MEDS: METOPROLOL SUCCINATE 25 MG ER TABLET PO SCH (08:52)
[2022-01-13] MEDS: DOCUSATE SODIUM 100 MG CAPSULE PO SCH ×2 (08:53→21:00)
[2022-01-13 16:29] VITALS: BP 118/58
[2022-01-13 19:42] VITALS: BP 103/53
[2022-01-13] MEDS: OLANZapine 7.5 MG TABLET PO SCH (21:00)
[2022-01-14 03:30] VITALS: BP 114/65
[2022-01-14 07:08] VITALS: BP 110/68
[2022-01-14] MEDS: HEPARIN SODIUM,PORCINE 5,000 UNITS/ML VIAL SQ SCH ×3 (08:00→16:00)
[2022-01-14] MEDS: METOPROLOL SUCCINATE 25 MG ER TABLET PO SCH (08:58)
[2022-01-14] MEDS: DIVALPROEX SODIUM 250 MG DR TABLET PO SCH ×2 (08:58→21:00)
[2022-01-14] MEDS: DOCUSATE SODIUM 100 MG CAPSULE PO SCH ×2 (08:58→21:00)
[2022-01-14] MEDS: SODIUM CHLORIDE 0.9% 1,000 ML IV SCH ×2 (08:59→22:48)
[2022-01-14] MEDS: SODIUM HYPOCHLORITE 0.25% [HALF STRENGTH] 473 ML SOLUTION TP SCH (08:59)
[2022-01-14] MEDS ORDERED: SODIUM CL IRRIG SOLN BOTTLE 250 ML IRRIG ONE (09:29)
[2022-01-14] MEDS: AMOX TR/POT CLAV 875 MG/125 MG TABLET PO SCH ×2 (14:30→21:00)
[2022-01-14 15:14] VITALS: BP 106/64
[2022-01-14] MEDS: CLINDAMYCIN HCL 300 MG CAPSULE PO SCH (15:15)
[2022-01-14 21:00] VITALS: BP 120/64
[2022-01-14] MEDS: OLANZapine 7.5 MG TABLET PO SCH (21:00)
[2022-01-15 03:45] VITALS: BP 100/59
[2022-01-15 06:37] LABS: HEMATOCRIT 32.8 % (36-46); HEMOGLOBIN 10.8 g/dL (12.0-16.0); MEAN CORPUSCULAR HEMOGLOBIN 29.9 pg (26.0-34.0); MEAN CORPUSCULAR HGB CONC 32.9 G/dL (31.0-37.0); MEAN CORPUSCULAR VOLUME 91 fL (80-100); PLATELET COUNT (AUTO) 215 K/uL (150-450); RED BLOOD CELL COUNT(AUTO) 3.61 MIL/uL (4.00-5.20); RED CELL DISTRIBUTION WIDTH 13.7 % (11.5-14.5)
[2022-01-15 07:22] LABS: ALBUMIN 1.9 g/dL (3.4-5.0); BILIRUBIN,TOTAL 0.5 mg/dL (0.1-1.0); CALCIUM, TOTAL 9.5 mg/dL (8.8-10.5); CREATININE 1.33 mg/dL (0.60-1.30); POTASSIUM 3.9 mmol/L (3.5-5.1); TOTAL PROTEIN, SERUM 6.3 g/dL (6.4-8.2)
[2022-01-15 07:45] LABS: BAND NEUTROPHILS % (MANUAL) 7 % (0-5); LYMPHOCYTES % (MANUAL) 36 % (22-44); MONOCYTES % (MANUAL) 4 % (2-9); SEGMENTED NEUTROPHILS % 53 % (40-70)
[2022-01-15] MEDS: CLINDAMYCIN HCL 300 MG CAPSULE PO SCH ×4 (08:00→22:40)
[2022-01-15] MEDS: HEPARIN SODIUM,PORCINE 5,000 UNITS/ML VIAL SQ SCH ×4 (08:00→22:41)
[2022-01-15 08:04] VITALS: BP 104/53
[2022-01-15] MEDS: METOPROLOL SUCCINATE 25 MG ER TABLET PO SCH (09:00)
[2022-01-15] MEDS: SODIUM HYPOCHLORITE 0.25% [HALF STRENGTH] 473 ML SOLUTION TP SCH (09:00)
[2022-01-15] MEDS: AMOX TR/POT CLAV 875 MG/125 MG TABLET PO SCH ×2 (09:00→21:00)
[2022-01-15] MEDS: DIVALPROEX SODIUM 250 MG DR TABLET PO SCH ×2 (09:00→21:00)
[2022-01-15] MEDS: DOCUSATE SODIUM 100 MG CAPSULE PO SCH ×2 (10:29→21:00)
[2022-01-15] MEDS: SODIUM CHLORIDE 0.9% 1,000 ML IV SCH (12:08)
[2022-01-15] MEDS: OLANZapine 7.5 MG TABLET PO SCH (21:00)
[2022-01-16] MEDS: SODIUM CHLORIDE 0.9% 1,000 ML IV SCH ×3 (00:36→23:33)
[2022-01-16] MEDS: HEPARIN SODIUM,PORCINE 5,000 UNITS/ML VIAL SQ SCH ×3 (08:00→23:33)
[2022-01-16] MEDS: CLINDAMYCIN HCL 300 MG CAPSULE PO SCH ×3 (08:00→23:32)
[2022-01-16] MEDS: METOPROLOL SUCCINATE 25 MG ER TABLET PO SCH (09:00)
[2022-01-16] MEDS: AMOX TR/POT CLAV 875 MG/125 MG TABLET PO SCH ×2 (09:00→21:00)
[2022-01-16] MEDS: DOCUSATE SODIUM 100 MG CAPSULE PO SCH ×2 (09:00→21:00)
[2022-01-16] MEDS: DIVALPROEX SODIUM 250 MG DR TABLET PO SCH ×2 (09:00→21:00)
[2022-01-16] MEDS: SODIUM HYPOCHLORITE 0.25% [HALF STRENGTH] 473 ML SOLUTION TP SCH (09:43)
[2022-01-16] MEDS: OLANZapine 7.5 MG TABLET PO SCH (21:00)
[2022-01-17] MEDS: CLINDAMYCIN HCL 300 MG CAPSULE PO SCH ×2 (08:00→16:00)
[2022-01-17] MEDS: HEPARIN SODIUM,PORCINE 5,000 UNITS/ML VIAL SQ SCH ×2 (08:00→16:00)
[2022-01-17] MEDS: DOCUSATE SODIUM 100 MG CAPSULE PO SCH ×2 (09:00→21:00)
[2022-01-17] MEDS: AMOX TR/POT CLAV 875 MG/125 MG TABLET PO SCH ×2 (09:00→21:00)
[2022-01-17] MEDS: METOPROLOL SUCCINATE 25 MG ER TABLET PO SCH (09:00)
[2022-01-17] MEDS: DIVALPROEX SODIUM 250 MG DR TABLET PO SCH ×2 (09:00→21:00)
[2022-01-17] MEDS: SODIUM HYPOCHLORITE 0.25% [HALF STRENGTH] 473 ML SOLUTION TP SCH (14:58)
[2022-01-17] MEDS: SODIUM CHLORIDE 0.9% 1,000 ML IV SCH (17:28)
[2022-01-17] MEDS: OLANZapine 7.5 MG TABLET PO SCH (21:00)
[2022-01-18] MEDS: SODIUM CHLORIDE 0.9% 1,000 ML IV SCH ×2 (06:09→20:08)
[2022-01-18] MEDS: CLINDAMYCIN HCL 300 MG CAPSULE PO SCH ×4 (08:00→23:29)
[2022-01-18] MEDS: HEPARIN SODIUM,PORCINE 5,000 UNITS/ML VIAL SQ SCH ×4 (08:00→23:29)
[2022-01-18] MEDS: DOCUSATE SODIUM 100 MG CAPSULE PO SCH ×2 (08:59→20:09)
[2022-01-18] MEDS: AMOX TR/POT CLAV 875 MG/125 MG TABLET PO SCH ×2 (08:59→20:09)
[2022-01-18] MEDS: DIVALPROEX SODIUM 250 MG DR TABLET PO SCH ×2 (09:00→20:09)
[2022-01-18] MEDS: SODIUM HYPOCHLORITE 0.25% [HALF STRENGTH] 473 ML SOLUTION TP SCH ×2 (09:00→11:11)
[2022-01-18] MEDS: METOPROLOL SUCCINATE 25 MG ER TABLET PO SCH (09:00)
[2022-01-18 09:41] VITALS: BP 93/55
[2022-01-18 16:04] VITALS: BP 109/68
[2022-01-18 19:56] VITALS: BP 95/55
[2022-01-18] MEDS: OLANZapine 7.5 MG TABLET PO SCH (20:09)
[2022-01-18 23:32] LABS: CALCIUM, TOTAL 9.6 mg/dL (8.8-10.5); CREATININE 1.54 mg/dL (0.60-1.30); POTASSIUM 4.5 mmol/L (3.5-5.1)
[2022-01-19 04:24] VITALS: BP 97/57
[2022-01-19 07:56] VITALS: BP 115/56
[2022-01-19] MEDS: CLINDAMYCIN HCL 300 MG CAPSULE PO SCH ×3 (08:00→23:45)
[2022-01-19] MEDS: HEPARIN SODIUM,PORCINE 5,000 UNITS/ML VIAL SQ SCH ×3 (08:00→23:45)
[2022-01-19] MEDS: AMOX TR/POT CLAV 875 MG/125 MG TABLET PO SCH ×2 (09:00→21:00)
[2022-01-19] MEDS: DIVALPROEX SODIUM 250 MG DR TABLET PO SCH ×2 (09:00→21:00)
[2022-01-19] MEDS: METOPROLOL SUCCINATE 25 MG ER TABLET PO SCH (09:00)
[2022-01-19] MEDS: DOCUSATE SODIUM 100 MG CAPSULE PO SCH ×2 (09:21→21:00)
[2022-01-19] MEDS: SODIUM HYPOCHLORITE 0.25% [HALF STRENGTH] 473 ML SOLUTION TP SCH (09:26)
[2022-01-19] MEDS: SODIUM CHLORIDE 0.9% 1,000 ML IV SCH ×2 (09:28→22:14)
[2022-01-19 15:34] VITALS: BP 101/55
[2022-01-19 20:21] VITALS: BP 97/54
[2022-01-19] MEDS: OLANZapine 7.5 MG TABLET PO SCH (21:00)
[2022-01-20 05:06] VITALS: BP 126/61
[2022-01-20 07:53] VITALS: BP 110/63
[2022-01-20] MEDS: HEPARIN SODIUM,PORCINE 5,000 UNITS/ML VIAL SQ SCH ×2 (08:00→16:00)
[2022-01-20] MEDS: CLINDAMYCIN HCL 300 MG CAPSULE PO SCH ×2 (08:00→16:00)
[2022-01-20] MEDS: METOPROLOL SUCCINATE 25 MG ER TABLET PO SCH (08:54)
[2022-01-20] MEDS: DOCUSATE SODIUM 100 MG CAPSULE PO SCH ×2 (08:55→21:00)
[2022-01-20] MEDS: SODIUM HYPOCHLORITE 0.25% [HALF STRENGTH] 473 ML SOLUTION TP SCH (08:56)
[2022-01-20] MEDS: AMOX TR/POT CLAV 875 MG/125 MG TABLET PO SCH ×2 (09:00→21:00)
[2022-01-20] MEDS: DIVALPROEX SODIUM 250 MG DR TABLET PO SCH ×2 (09:00→21:00)
[2022-01-20] MEDS: SODIUM CHLORIDE 0.9% 1,000 ML IV SCH (12:08)
[2022-01-20 15:36] VITALS: BP 102/60
[2022-01-20 20:29] VITALS: BP 117/59
[2022-01-20] MEDS: OLANZapine 7.5 MG TABLET PO SCH (21:00)
[2022-01-21] MEDS: SODIUM CHLORIDE 0.9% 1,000 ML IV SCH ×2 (01:28→13:35)
[2022-01-21 05:00] VITALS: BP 102/53
[2022-01-21 06:47] LABS: ALBUMIN 2.2 g/dL (3.4-5.0)
[2022-01-21 07:45] VITALS: BP 119/70
[2022-01-21] MEDS: CLINDAMYCIN HCL 300 MG CAPSULE PO SCH ×3 (08:00→15:58)
[2022-01-21] MEDS: HEPARIN SODIUM,PORCINE 5,000 UNITS/ML VIAL SQ SCH ×3 (08:00→15:58)
[2022-01-21] MEDS: DOCUSATE SODIUM 100 MG CAPSULE PO SCH ×2 (09:00→21:00)
[2022-01-21] MEDS: AMOX TR/POT CLAV 875 MG/125 MG TABLET PO SCH ×2 (09:00→21:00)
[2022-01-21] MEDS: DIVALPROEX SODIUM 250 MG DR TABLET PO SCH ×2 (09:00→21:00)
[2022-01-21] MEDS: METOPROLOL SUCCINATE 25 MG ER TABLET PO SCH (09:00)
[2022-01-21] MEDS: SODIUM HYPOCHLORITE 0.25% [HALF STRENGTH] 473 ML SOLUTION TP SCH (09:22)
[2022-01-21] MEDS ORDERED: SODIUM CL IRRIG SOLN BOTTLE 250 ML IRRIG ONE (12:28)
[2022-01-21 15:03] VITALS: BP 109/66
[2022-01-21 20:00] VITALS: BP 95/56
[2022-01-21] MEDS: OLANZapine 7.5 MG TABLET PO SCH (21:00)
[2022-01-22 02:11] LABS: COVID AG,FIA SOURCE NASAL SWAB
[2022-01-22] MEDS: SODIUM CHLORIDE 0.9% 1,000 ML IV SCH ×2 (04:08→17:28)
[2022-01-22 05:28] VITALS: BP 105/54
[2022-01-22 08:00] VITALS: BP 113/66
[2022-01-22] MEDS: CLINDAMYCIN HCL 300 MG CAPSULE PO SCH ×4 (08:00→23:43)
[2022-01-22] MEDS: HEPARIN SODIUM,PORCINE 5,000 UNITS/ML VIAL SQ SCH ×4 (08:00→23:43)
[2022-01-22] MEDS: AMOX TR/POT CLAV 875 MG/125 MG TABLET PO SCH ×2 (09:00→20:26)
[2022-01-22] MEDS: DOCUSATE SODIUM 100 MG CAPSULE PO SCH ×2 (09:00→20:27)
[2022-01-22] MEDS: DIVALPROEX SODIUM 250 MG DR TABLET PO SCH ×2 (09:00→20:27)
[2022-01-22] MEDS: METOPROLOL SUCCINATE 25 MG ER TABLET PO SCH (09:00)
[2022-01-22] MEDS: SODIUM HYPOCHLORITE 0.25% [HALF STRENGTH] 473 ML SOLUTION TP SCH (12:47)
[2022-01-22 15:53] VITALS: BP 98/64
[2022-01-22] MEDS: BISACODYL 10 MG RECTAL RECTAL SUPPOSITORY PR PRN (16:08)
[2022-01-22 20:20] VITALS: BP 100/64
[2022-01-22] MEDS: OLANZapine 7.5 MG TABLET PO SCH (20:27)
[2022-01-23 04:40] VITALS: BP 98/64
[2022-01-23] MEDS: SODIUM CHLORIDE 0.9% 1,000 ML IV SCH ×2 (06:48→20:08)
[2022-01-23] MEDS: HEPARIN SODIUM,PORCINE 5,000 UNITS/ML VIAL SQ SCH ×3 (08:00→23:21)
[2022-01-23] MEDS: CLINDAMYCIN HCL 300 MG CAPSULE PO SCH ×3 (08:00→23:21)
[2022-01-23 08:48] VITALS: BP 111/76
[2022-01-23] MEDS: METOPROLOL SUCCINATE 25 MG ER TABLET PO SCH (09:00)
[2022-01-23] MEDS: AMOX TR/POT CLAV 875 MG/125 MG TABLET PO SCH ×2 (09:00→20:14)
[2022-01-23] MEDS: DOCUSATE SODIUM 100 MG CAPSULE PO SCH ×2 (09:00→20:15)
[2022-01-23] MEDS: SODIUM HYPOCHLORITE 0.25% [HALF STRENGTH] 473 ML SOLUTION TP SCH (09:00)
[2022-01-23] MEDS: DIVALPROEX SODIUM 250 MG DR TABLET PO SCH ×2 (09:00→20:15)
[2022-01-23] MEDS ORDERED: SODIUM CL IRRIG SOLN BOTTLE 250 ML IRRIG ONE (09:25)
[2022-01-23] MEDS: OLANZapine 7.5 MG TABLET PO SCH (20:15)
[2022-01-24 07:47] VITALS: BP 111/57
[2022-01-24] MEDS: DOCUSATE SODIUM 100 MG CAPSULE PO SCH ×2 (07:54→20:08)
[2022-01-24] MEDS: DIVALPROEX SODIUM 250 MG DR TABLET PO SCH ×2 (07:55→20:12)
[2022-01-24] MEDS: AMOX TR/POT CLAV 875 MG/125 MG TABLET PO SCH ×2 (07:55→20:12)
[2022-01-24] MEDS: METOPROLOL SUCCINATE 25 MG ER TABLET PO SCH (07:55)
[2022-01-24] MEDS: SODIUM CHLORIDE 0.9% 1,000 ML IV SCH ×2 (07:55→20:12)
[2022-01-24] MEDS: HEPARIN SODIUM,PORCINE 5,000 UNITS/ML VIAL SQ SCH ×3 (07:55→23:36)
[2022-01-24] MEDS: CLINDAMYCIN HCL 300 MG CAPSULE PO SCH ×3 (07:55→23:36)
[2022-01-24] MEDS: SODIUM HYPOCHLORITE 0.25% [HALF STRENGTH] 473 ML SOLUTION TP SCH (09:18)
[2022-01-24 15:44] VITALS: BP 106/67
[2022-01-24] MEDS: OLANZapine 7.5 MG TABLET PO SCH (15:59)
[2022-01-24 20:34] VITALS: BP 106/62
[2022-01-25 04:15] VITALS: BP 113/52
[2022-01-25] MEDS: LEVOTHYROXINE SODIUM 50 MCG TABLET PO SCH (05:29)
[2022-01-25 07:59] VITALS: BP 93/54
[2022-01-25] MEDS: CLINDAMYCIN HCL 300 MG CAPSULE PO SCH ×3 (08:00→23:11)
[2022-01-25] MEDS: HEPARIN SODIUM,PORCINE 5,000 UNITS/ML VIAL SQ SCH ×3 (08:00→23:11)
[2022-01-25] MEDS: DOCUSATE SODIUM 100 MG CAPSULE PO SCH ×2 (08:14→19:55)
[2022-01-25] MEDS: AMOX TR/POT CLAV 875 MG/125 MG TABLET PO SCH ×2 (08:16→21:00)
[2022-01-25] MEDS: METOPROLOL SUCCINATE 25 MG ER TABLET PO SCH (08:17)
[2022-01-25] MEDS: DIVALPROEX SODIUM 250 MG DR TABLET PO SCH ×2 (08:17→21:00)
[2022-01-25] MEDS: SODIUM HYPOCHLORITE 0.25% [HALF STRENGTH] 473 ML SOLUTION TP SCH (08:17)
[2022-01-25] MEDS: SODIUM CHLORIDE 0.9% 1,000 ML IV SCH (12:04)
[2022-01-25 18:30] VITALS: BP 90/51
[2022-01-25 19:56] VITALS: BP 108/57
[2022-01-25] MEDS: OLANZapine 7.5 MG TABLET PO SCH (21:00)
[2022-01-26] MEDS: SODIUM CHLORIDE 0.9% 1,000 ML IV SCH ×2 (01:28→14:48)
[2022-01-26 03:51] VITALS: BP 104/53
[2022-01-26] MEDS: LEVOTHYROXINE SODIUM 50 MCG TABLET PO SCH (05:46)
[2022-01-26 07:14] VITALS: BP 105/61
[2022-01-26] MEDS: HEPARIN SODIUM,PORCINE 5,000 UNITS/ML VIAL SQ SCH ×2 (08:00→15:02)
[2022-01-26] MEDS: CLINDAMYCIN HCL 300 MG CAPSULE PO SCH ×2 (08:00→14:58)
[2022-01-26] MEDS: DOCUSATE SODIUM 100 MG CAPSULE PO SCH ×2 (08:12→21:17)
[2022-01-26] MEDS: AMOX TR/POT CLAV 875 MG/125 MG TABLET PO SCH ×3 (08:16→21:37)
[2022-01-26] MEDS: METOPROLOL SUCCINATE 25 MG ER TABLET PO SCH (08:17)
[2022-01-26] MEDS: SODIUM HYPOCHLORITE 0.25% [HALF STRENGTH] 473 ML SOLUTION TP SCH (08:17)
[2022-01-26] MEDS: DIVALPROEX SODIUM 250 MG DR TABLET PO SCH ×3 (08:17→21:37)
[2022-01-26 15:33] VITALS: BP 106/61
[2022-01-26 19:19] VITALS: BP 109/65
[2022-01-26] MEDS: OLANZapine 7.5 MG TABLET PO SCH ×2 (21:18→21:38)
[2022-01-27 03:30] VITALS: BP 106/65
[2022-01-27] MEDS: SODIUM CHLORIDE 0.9% 1,000 ML IV SCH ×2 (04:08→16:18)
[2022-01-27] MEDS: LEVOTHYROXINE SODIUM 50 MCG TABLET PO SCH (06:26)
[2022-01-27 07:14] VITALS: BP 104/63
[2022-01-27] MEDS: HEPARIN SODIUM,PORCINE 5,000 UNITS/ML VIAL SQ SCH ×3 (08:00→16:00)
[2022-01-27] MEDS: METOPROLOL SUCCINATE 25 MG ER TABLET PO SCH (08:25)
[2022-01-27] MEDS: SODIUM HYPOCHLORITE 0.25% [HALF STRENGTH] 473 ML SOLUTION TP SCH (09:14)
[2022-01-27] MEDS: CLINDAMYCIN HCL 300 MG CAPSULE PO SCH ×4 (09:14→16:19)
[2022-01-27] MEDS: DOCUSATE SODIUM 100 MG CAPSULE PO SCH ×2 (09:14→20:00)
[2022-01-27 15:02] VITALS: BP 108/83
[2022-01-27 19:55] VITALS: BP 109/62
[2022-01-27] MEDS: ACETAMINOPHEN 325 MG TABLET PO PRN (19:56)
[2022-01-27] MEDS: DIVALPROEX SODIUM 250 MG DR TABLET PO SCH (21:00)
[2022-01-27] MEDS: AMOX TR/POT CLAV 875 MG/125 MG TABLET PO SCH (21:00)
[2022-01-28 05:47] VITALS: BP 98/57
[2022-01-28] MEDS: LEVOTHYROXINE SODIUM 50 MCG TABLET PO SCH (06:39)
[2022-01-28] MEDS: SODIUM CHLORIDE 0.9% 1,000 ML IV SCH ×2 (06:40→20:08)
[2022-01-28 07:25] VITALS: BP 117/72
[2022-01-28] MEDS: HEPARIN SODIUM,PORCINE 5,000 UNITS/ML VIAL SQ SCH ×3 (08:00→15:59)
[2022-01-28] MEDS: CLINDAMYCIN HCL 300 MG CAPSULE PO SCH ×4 (08:22→23:51)
[2022-01-28] MEDS: AMOX TR/POT CLAV 875 MG/125 MG TABLET PO SCH ×2 (08:24→20:16)
[2022-01-28] MEDS: DOCUSATE SODIUM 100 MG CAPSULE PO SCH ×2 (08:25→20:16)
[2022-01-28] MEDS: DIVALPROEX SODIUM 250 MG DR TABLET PO SCH ×2 (08:25→20:16)
[2022-01-28] MEDS: METOPROLOL SUCCINATE 25 MG ER TABLET PO SCH (08:25)
[2022-01-28 12:01] LABS: BASOPHILS % (AUTO) 0.6 % (0.0-2.0); EOSINOPHILS % (AUTO) 1.6 % (1.0-6.0); HEMATOCRIT 32.6 % (36-46); HEMOGLOBIN 10.8 g/dL (12.0-16.0); LYMPHOCYTES # (AUTO) 1.3 K/uL (1.0-4.8); LYMPHOCYTES % (AUTO) 22.6 % (22.0-44.0); MEAN CORPUSCULAR HEMOGLOBIN 30.5 pg (26.0-34.0); MEAN CORPUSCULAR VOLUME 93 fL (80-100); MONOCYTES # (AUTO) 0.8 K/uL (0.1-1.0); MONOCYTES % (AUTO) 13.9 % (2.0-9.0); NEUTROPHILS # (AUTO) 3.4 K/uL (1.8-7.7); NEUTROPHILS % (AUTO) 61.3 % (40.0-70.0); PLATELET COUNT (AUTO) 221 K/uL (150-450); RED BLOOD CELL COUNT(AUTO) 3.53 MIL/uL (4.00-5.20); RED CELL DISTRIBUTION WIDTH 16.1 % (11.5-14.5)
[2022-01-28 12:11] LABS: ANION GAP 3 mmol/L (8-16); CALCIUM, TOTAL 9.6 mg/dL (8.8-10.5); CARBON DIOXIDE 29 mmol/L (22-29); CHLORIDE 100 mmol/L (98-107); CREATININE 0.87 mg/dL (0.60-1.30); GLUCOSE,RANDOM 107 mg/dL (70-110); POTASSIUM 4.9 mmol/L (3.5-5.1); SODIUM SERUM 132 mmol/L (136-145); UREA NITROGEN, BLOOD 7 mg/dL (7-18)
[2022-01-28 12:18] LABS: GLOMERULAR FILTR. RATE CALC > 60 mL/min (>60)
[2022-01-28] MEDS: SODIUM HYPOCHLORITE 0.25% [HALF STRENGTH] 473 ML SOLUTION TP SCH (13:22)
[2022-01-28 15:37] VITALS: BP 104/66
[2022-01-28 19:35] VITALS: BP 102/65
[2022-01-28] MEDS: OLANZapine 7.5 MG TABLET PO SCH (20:17)
[2022-01-29 04:30] VITALS: BP 104/74
[2022-01-29] MEDS: LEVOTHYROXINE SODIUM 50 MCG TABLET PO SCH (06:30)
[2022-01-29 07:25] VITALS: BP 111/71
[2022-01-29] MEDS: HEPARIN SODIUM,PORCINE 5,000 UNITS/ML VIAL SQ SCH ×4 (08:00→23:14)
[2022-01-29] MEDS: DOCUSATE SODIUM 100 MG CAPSULE PO SCH ×2 (09:00→20:09)
[2022-01-29] MEDS: AMOX TR/POT CLAV 875 MG/125 MG TABLET PO SCH ×2 (09:00→20:09)
[2022-01-29] MEDS: DIVALPROEX SODIUM 250 MG DR TABLET PO SCH ×2 (09:00→20:10)
[2022-01-29] MEDS: METOPROLOL SUCCINATE 25 MG ER TABLET PO SCH (09:00)
[2022-01-29] MEDS: SODIUM CHLORIDE 0.9% 1,000 ML IV SCH ×2 (09:28→20:10)
[2022-01-29] MEDS: SODIUM HYPOCHLORITE 0.25% [HALF STRENGTH] 473 ML SOLUTION TP SCH (10:09)
[2022-01-29] MEDS: CLINDAMYCIN HCL 300 MG CAPSULE PO SCH ×3 (11:21→23:14)
[2022-01-29 15:54] VITALS: BP 116/65
[2022-01-29 19:20] VITALS: BP 120/67
[2022-01-29] MEDS: OLANZapine 7.5 MG TABLET PO SCH (20:10)
[2022-01-30 03:45] VITALS: BP 111/59
[2022-01-30] MEDS: LEVOTHYROXINE SODIUM 50 MCG TABLET PO SCH (05:46)
[2022-01-30 07:56] VITALS: BP 114/62
[2022-01-30] MEDS: HEPARIN SODIUM,PORCINE 5,000 UNITS/ML VIAL SQ SCH ×3 (08:00→23:47)
[2022-01-30] MEDS: CLINDAMYCIN HCL 300 MG CAPSULE PO SCH ×3 (08:48→23:58)
[2022-01-30] MEDS: METOPROLOL SUCCINATE 25 MG ER TABLET PO SCH (08:52)
[2022-01-30] MEDS: DIVALPROEX SODIUM 250 MG DR TABLET PO SCH ×2 (08:52→20:11)
[2022-01-30] MEDS: SODIUM HYPOCHLORITE 0.25% [HALF STRENGTH] 473 ML SOLUTION TP SCH (08:52)
[2022-01-30] MEDS: DOCUSATE SODIUM 100 MG CAPSULE PO SCH ×2 (08:52→20:11)
[2022-01-30] MEDS: MULTIVITAMINS WITH MINERALS, THERAPEUTIC TABLET PO SCH (08:52)
[2022-01-30] MEDS: AMOX TR/POT CLAV 875 MG/125 MG TABLET PO SCH ×2 (08:52→20:11)
[2022-01-30] MEDS: SODIUM CHLORIDE 0.9% 1,000 ML IV SCH (12:08)
[2022-01-30 16:24] VITALS: BP 107/67
[2022-01-30] MEDS: OLANZapine 7.5 MG TABLET PO SCH (20:12)
[2022-01-31] MEDS: SODIUM CHLORIDE 0.9% 1,000 ML IV SCH ×2 (01:16→14:13)
[2022-01-31 05:44] VITALS: BP 115/67
[2022-01-31] MEDS: LEVOTHYROXINE SODIUM 50 MCG TABLET PO SCH (06:32)
[2022-01-31] MEDS: HEPARIN SODIUM,PORCINE 5,000 UNITS/ML VIAL SQ SCH ×3 (07:59→23:18)
[2022-01-31] MEDS: AMOX TR/POT CLAV 875 MG/125 MG TABLET PO SCH ×2 (07:59→21:00)
[2022-01-31] MEDS: MULTIVITAMINS WITH MINERALS, THERAPEUTIC TABLET PO SCH (07:59)
[2022-01-31] MEDS: DOCUSATE SODIUM 100 MG CAPSULE PO SCH ×2 (07:59→21:00)
[2022-01-31] MEDS: DIVALPROEX SODIUM 250 MG DR TABLET PO SCH ×2 (07:59→21:00)
[2022-01-31] MEDS: CLINDAMYCIN HCL 300 MG CAPSULE PO SCH ×4 (07:59→23:17)
[2022-01-31] MEDS: METOPROLOL SUCCINATE 25 MG ER TABLET PO SCH (08:00)
[2022-01-31] MEDS: SODIUM HYPOCHLORITE 0.25% [HALF STRENGTH] 473 ML SOLUTION TP SCH (08:00)
[2022-01-31 16:48] VITALS: BP 119/67
[2022-01-31] MEDS: OLANZapine 7.5 MG TABLET PO SCH (21:00)
[2022-02-01] MEDS: SODIUM CHLORIDE 0.9% 1,000 ML IV SCH ×2 (03:43→15:10)
[2022-02-01 04:15] VITALS: BP 124/72
[2022-02-01] MEDS: LEVOTHYROXINE SODIUM 50 MCG TABLET PO SCH ×2 (05:59→08:10)
[2022-02-01 07:40] VITALS: BP 118/67
[2022-02-01] MEDS: HEPARIN SODIUM,PORCINE 5,000 UNITS/ML VIAL SQ SCH ×2 (08:00→15:10)
[2022-02-01] MEDS: AMOX TR/POT CLAV 875 MG/125 MG TABLET PO SCH ×2 (08:08→21:00)
[2022-02-01] MEDS: DOCUSATE SODIUM 100 MG CAPSULE PO SCH ×2 (08:09→21:00)
[2022-02-01] MEDS: METOPROLOL SUCCINATE 25 MG ER TABLET PO SCH (08:09)
[2022-02-01] MEDS: DIVALPROEX SODIUM 250 MG DR TABLET PO SCH ×2 (08:09→21:00)
[2022-02-01] MEDS: MULTIVITAMINS WITH MINERALS, THERAPEUTIC TABLET PO SCH (08:09)
[2022-02-01] MEDS: SODIUM HYPOCHLORITE 0.25% [HALF STRENGTH] 473 ML SOLUTION TP SCH (08:13)
[2022-02-01] MEDS: CLINDAMYCIN HCL 300 MG CAPSULE PO SCH ×2 (08:13→16:13)
[2022-02-01 16:05] VITALS: BP 121/61
[2022-02-01] MEDS: OLANZapine 7.5 MG TABLET PO SCH (21:00)
[2022-02-01 21:03] VITALS: BP 113/68
[2022-02-02] MEDS: LEVOTHYROXINE SODIUM 50 MCG TABLET PO SCH (06:01)
[2022-02-02 06:33] VITALS: BP 124/70
[2022-02-02] MEDS: SODIUM CHLORIDE 0.9% 1,000 ML IV SCH ×2 (06:48→20:08)
[2022-02-02] MEDS: HEPARIN SODIUM,PORCINE 5,000 UNITS/ML VIAL SQ SCH ×4 (08:00→23:10)
[2022-02-02 08:10] VITALS: BP 120/67
[2022-02-02] MEDS: SODIUM HYPOCHLORITE 0.25% [HALF STRENGTH] 473 ML SOLUTION TP SCH (08:11)
[2022-02-02] MEDS: CLINDAMYCIN HCL 300 MG CAPSULE PO SCH ×3 (08:12→15:10)
[2022-02-02] MEDS: MULTIVITAMINS WITH MINERALS, THERAPEUTIC TABLET PO SCH (08:13)
[2022-02-02] MEDS: AMOX TR/POT CLAV 875 MG/125 MG TABLET PO SCH ×2 (08:13→21:00)
[2022-02-02] MEDS: METOPROLOL SUCCINATE 25 MG ER TABLET PO SCH (08:13)
[2022-02-02] MEDS: DOCUSATE SODIUM 100 MG CAPSULE PO SCH ×2 (08:13→21:00)
[2022-02-02] MEDS: DIVALPROEX SODIUM 250 MG DR TABLET PO SCH ×2 (08:13→21:00)
[2022-02-02 15:15] VITALS: BP 108/57
[2022-02-02] MEDS: OLANZapine 7.5 MG TABLET PO SCH (21:00)
[2022-02-03] MEDS: LEVOTHYROXINE SODIUM 50 MCG TABLET PO SCH (06:14)
[2022-02-03] MEDS: CLINDAMYCIN HCL 300 MG CAPSULE PO SCH ×4 (08:00→23:28)
[2022-02-03] MEDS: HEPARIN SODIUM,PORCINE 5,000 UNITS/ML VIAL SQ SCH ×3 (08:00→23:29)
[2022-02-03] MEDS: SODIUM HYPOCHLORITE 0.25% [HALF STRENGTH] 473 ML SOLUTION TP SCH (08:19)
[2022-02-03] MEDS: DIVALPROEX SODIUM 250 MG DR TABLET PO SCH ×2 (08:20→21:00)
[2022-02-03] MEDS: DOCUSATE SODIUM 100 MG CAPSULE PO SCH ×2 (08:20→21:00)
[2022-02-03] MEDS: SODIUM CHLORIDE 0.9% 1,000 ML IV SCH ×2 (08:20→22:39)
[2022-02-03] MEDS: MULTIVITAMINS WITH MINERALS, THERAPEUTIC TABLET PO SCH (08:20)
[2022-02-03] MEDS: AMOX TR/POT CLAV 875 MG/125 MG TABLET PO SCH ×2 (08:20→21:00)
[2022-02-03] MEDS: METOPROLOL SUCCINATE 25 MG ER TABLET PO SCH (08:20)
[2022-02-03] MEDS ORDERED: MAGNESIUM HYDROXIDE SUSPENSION 30 ML UDCUP PO PRN (08:30)
[2022-02-03 08:51] VITALS: BP 118/55
[2022-02-03 16:41] VITALS: BP 108/57
[2022-02-03] MEDS: OLANZapine 7.5 MG TABLET PO SCH (21:00)
[2022-02-04] MEDS: LEVOTHYROXINE SODIUM 50 MCG TABLET PO SCH (06:11)
[2022-02-04] MEDS: CLINDAMYCIN HCL 300 MG CAPSULE PO SCH ×2 (08:00→16:00)
[2022-02-04] MEDS: HEPARIN SODIUM,PORCINE 5,000 UNITS/ML VIAL SQ SCH ×2 (08:00→16:00)
[2022-02-04] MEDS: MULTIVITAMINS WITH MINERALS, THERAPEUTIC TABLET PO SCH (09:00)
[2022-02-04] MEDS: SODIUM HYPOCHLORITE 0.25% [HALF STRENGTH] 473 ML SOLUTION TP SCH (09:00)
[2022-02-04] MEDS: AMOX TR/POT CLAV 875 MG/125 MG TABLET PO SCH ×2 (09:00→20:20)
[2022-02-04] MEDS: DOCUSATE SODIUM 100 MG CAPSULE PO SCH ×2 (09:00→20:21)
[2022-02-04] MEDS: METOPROLOL SUCCINATE 25 MG ER TABLET PO SCH (09:00)
[2022-02-04] MEDS: DIVALPROEX SODIUM 250 MG DR TABLET PO SCH ×2 (09:00→20:21)
[2022-02-04] MEDS: SODIUM CHLORIDE 0.9% 1,000 ML IV SCH (12:08)
[2022-02-04 15:56] VITALS: BP 129/76
[2022-02-04] MEDS: OLANZapine 7.5 MG TABLET PO SCH (20:21)
[2022-02-05] MEDS: SODIUM CHLORIDE 0.9% 1,000 ML IV SCH ×2 (01:28→13:22)
[2022-02-05 04:09] VITALS: BP 135/74
[2022-02-05] MEDS: LEVOTHYROXINE SODIUM 50 MCG TABLET PO SCH (06:21)
[2022-02-05] MEDS: HEPARIN SODIUM,PORCINE 5,000 UNITS/ML VIAL SQ SCH ×4 (08:00→23:05)
[2022-02-05] MEDS: CLINDAMYCIN HCL 300 MG CAPSULE PO SCH ×4 (08:00→23:05)
[2022-02-05] MEDS: AMOX TR/POT CLAV 875 MG/125 MG TABLET PO SCH ×2 (08:06→19:59)
[2022-02-05] MEDS: SODIUM HYPOCHLORITE 0.25% [HALF STRENGTH] 473 ML SOLUTION TP SCH (08:07)
[2022-02-05] MEDS: DOCUSATE SODIUM 100 MG CAPSULE PO SCH ×2 (08:07→19:59)
[2022-02-05] MEDS: MULTIVITAMINS WITH MINERALS, THERAPEUTIC TABLET PO SCH (08:07)
[2022-02-05] MEDS: METOPROLOL SUCCINATE 25 MG ER TABLET PO SCH (08:07)
[2022-02-05] MEDS: DIVALPROEX SODIUM 250 MG DR TABLET PO SCH ×2 (08:07→19:59)
[2022-02-05 08:14] VITALS: BP 123/78
[2022-02-05] MEDS ORDERED: DiphenhydrAMINE HCL 25 MG CAPSULE PO PRN (11:30)
[2022-02-05] MEDS ORDERED: SODIUM CL IRRIG SOLN BOTTLE 250 ML IRRIG ONE (12:38)
[2022-02-05 16:22] VITALS: BP 145/88
[2022-02-05] MEDS: OLANZapine 7.5 MG TABLET PO SCH (19:59)
[2022-02-06] MEDS: LEVOTHYROXINE SODIUM 50 MCG TABLET PO SCH (06:05)
[2022-02-06 06:10] VITALS: BP 138/76
[2022-02-06] MEDS: HEPARIN SODIUM,PORCINE 5,000 UNITS/ML VIAL SQ SCH ×3 (08:00→23:39)
[2022-02-06] MEDS: CLINDAMYCIN HCL 300 MG CAPSULE PO SCH ×3 (08:00→23:39)
[2022-02-06] MEDS: SODIUM HYPOCHLORITE 0.25% [HALF STRENGTH] 473 ML SOLUTION TP SCH (08:07)
[2022-02-06] MEDS: AMOX TR/POT CLAV 875 MG/125 MG TABLET PO SCH ×2 (08:08→20:06)
[2022-02-06] MEDS: DOCUSATE SODIUM 100 MG CAPSULE PO SCH ×2 (08:08→20:06)
[2022-02-06] MEDS: METOPROLOL SUCCINATE 25 MG ER TABLET PO SCH (08:08)
[2022-02-06] MEDS: DIVALPROEX SODIUM 250 MG DR TABLET PO SCH ×2 (08:08→20:07)
[2022-02-06] MEDS: MULTIVITAMINS WITH MINERALS, THERAPEUTIC TABLET PO SCH (08:08)
[2022-02-06] MEDS: SODIUM CHLORIDE 0.9% 1,000 ML IV SCH ×2 (09:00→17:28)
[2022-02-06 19:09] VITALS: BP 135/68
[2022-02-06] MEDS: OLANZapine 7.5 MG TABLET PO SCH (20:07)
[2022-02-07 03:16] VITALS: BP 122/71
[2022-02-07] MEDS: LEVOTHYROXINE SODIUM 50 MCG TABLET PO SCH (06:18)
[2022-02-07] MEDS: SODIUM CHLORIDE 0.9% 1,000 ML IV SCH ×2 (06:48→20:08)
[2022-02-07] MEDS: CLINDAMYCIN HCL 300 MG CAPSULE PO SCH ×3 (08:00→23:53)
[2022-02-07] MEDS: HEPARIN SODIUM,PORCINE 5,000 UNITS/ML VIAL SQ SCH ×3 (08:00→23:53)
[2022-02-07] MEDS: DIVALPROEX SODIUM 250 MG DR TABLET PO SCH ×2 (08:51→20:45)
[2022-02-07] MEDS: AMOX TR/POT CLAV 875 MG/125 MG TABLET PO SCH ×2 (08:51→20:45)
[2022-02-07] MEDS: DOCUSATE SODIUM 100 MG CAPSULE PO SCH ×2 (08:51→20:45)
[2022-02-07] MEDS: MULTIVITAMINS WITH MINERALS, THERAPEUTIC TABLET PO SCH (09:00)
[2022-02-07] MEDS: METOPROLOL SUCCINATE 25 MG ER TABLET PO SCH (09:00)
[2022-02-07] MEDS: SODIUM HYPOCHLORITE 0.25% [HALF STRENGTH] 473 ML SOLUTION TP SCH (13:56)
[2022-02-07 15:58] VITALS: BP 126/66
[2022-02-07 20:09] VITALS: BP 114/59
[2022-02-07] MEDS: OLANZapine 7.5 MG TABLET PO SCH (20:45)
[2022-02-08 03:47] VITALS: BP 134/73
[2022-02-08] MEDS: LEVOTHYROXINE SODIUM 50 MCG TABLET PO SCH (05:51)
[2022-02-08] MEDS: CLINDAMYCIN HCL 300 MG CAPSULE PO SCH ×3 (08:00→23:47)
[2022-02-08] MEDS: HEPARIN SODIUM,PORCINE 5,000 UNITS/ML VIAL SQ SCH ×3 (08:00→23:48)
[2022-02-08 08:57] VITALS: BP 125/61
[2022-02-08] MEDS: MULTIVITAMINS WITH MINERALS, THERAPEUTIC TABLET PO SCH (09:00)
[2022-02-08] MEDS: METOPROLOL SUCCINATE 25 MG ER TABLET PO SCH (09:00)
[2022-02-08] MEDS: DIVALPROEX SODIUM 250 MG DR TABLET PO SCH ×2 (09:00→21:00)
[2022-02-08] MEDS: AMOX TR/POT CLAV 875 MG/125 MG TABLET PO SCH ×2 (09:00→21:00)
[2022-02-08] MEDS: DOCUSATE SODIUM 100 MG CAPSULE PO SCH ×2 (09:00→21:00)
[2022-02-08] MEDS: SODIUM CHLORIDE 0.9% 1,000 ML IV SCH ×2 (09:28→22:48)
[2022-02-08] MEDS: SODIUM HYPOCHLORITE 0.25% [HALF STRENGTH] 473 ML SOLUTION TP SCH (16:58)
[2022-02-08 16:59] VITALS: BP 135/67
[2022-02-08 19:49] VITALS: BP 124/67
[2022-02-08] MEDS: OLANZapine 7.5 MG TABLET PO SCH (21:00)
[2022-02-09 03:57] VITALS: BP 136/57
[2022-02-09 08:00] VITALS: BP 140/77
[2022-02-09] MEDS: CLINDAMYCIN HCL 300 MG CAPSULE PO SCH ×2 (08:00→15:59)
[2022-02-09] MEDS: HEPARIN SODIUM,PORCINE 5,000 UNITS/ML VIAL SQ SCH ×2 (08:00→15:59)
[2022-02-09] MEDS: SODIUM HYPOCHLORITE 0.25% [HALF STRENGTH] 473 ML SOLUTION TP SCH (08:18)
[2022-02-09] MEDS: LEVOTHYROXINE SODIUM 50 MCG TABLET PO SCH (08:18)
[2022-02-09] MEDS: MULTIVITAMINS WITH MINERALS, THERAPEUTIC TABLET PO SCH (08:20)
[2022-02-09] MEDS: METOPROLOL SUCCINATE 25 MG ER TABLET PO SCH (08:20)
[2022-02-09] MEDS: DOCUSATE SODIUM 100 MG CAPSULE PO SCH ×2 (08:21→21:00)
[2022-02-09] MEDS: DIVALPROEX SODIUM 250 MG DR TABLET PO SCH ×2 (08:21→21:00)
[2022-02-09] MEDS: AMOX TR/POT CLAV 875 MG/125 MG TABLET PO SCH ×2 (08:21→21:00)
[2022-02-09] MEDS: SODIUM CHLORIDE 0.9% 1,000 ML IV SCH (12:08)
[2022-02-09 15:45] VITALS: BP 120/87
[2022-02-09 20:30] VITALS: BP 135/66
[2022-02-09] MEDS: OLANZapine 7.5 MG TABLET PO SCH (21:00)
[2022-02-10] MEDS: SODIUM CHLORIDE 0.9% 1,000 ML IV SCH ×2 (01:28→14:36)
[2022-02-10 03:10] VITALS: BP 131/71
[2022-02-10] MEDS: LEVOTHYROXINE SODIUM 50 MCG TABLET PO SCH (05:42)
[2022-02-10] MEDS: HEPARIN SODIUM,PORCINE 5,000 UNITS/ML VIAL SQ SCH ×3 (08:00→15:16)
[2022-02-10] MEDS: CLINDAMYCIN HCL 300 MG CAPSULE PO SCH ×3 (08:00→15:16)
[2022-02-10] MEDS: DOCUSATE SODIUM 100 MG CAPSULE PO SCH ×2 (09:00→21:00)
[2022-02-10] MEDS: MULTIVITAMINS WITH MINERALS, THERAPEUTIC TABLET PO SCH (09:00)
[2022-02-10] MEDS: DIVALPROEX SODIUM 250 MG DR TABLET PO SCH ×2 (09:00→21:00)
[2022-02-10] MEDS: AMOX TR/POT CLAV 875 MG/125 MG TABLET PO SCH ×2 (09:00→21:00)
[2022-02-10] MEDS: METOPROLOL SUCCINATE 25 MG ER TABLET PO SCH (09:00)
[2022-02-10] MEDS: SODIUM HYPOCHLORITE 0.25% [HALF STRENGTH] 473 ML SOLUTION TP SCH (09:39)
[2022-02-10] MEDS: OLANZapine 7.5 MG TABLET PO SCH (21:00)
[2022-02-11 02:34] VITALS: BP 135/71
[2022-02-11] MEDS: SODIUM CHLORIDE 0.9% 1,000 ML IV SCH ×2 (04:06→17:13)
[2022-02-11] MEDS: LEVOTHYROXINE SODIUM 50 MCG TABLET PO SCH (05:38)
[2022-02-11 07:31] VITALS: BP 130/72
[2022-02-11] MEDS: CLINDAMYCIN HCL 300 MG CAPSULE PO SCH ×3 (08:00→15:12)
[2022-02-11] MEDS: HEPARIN SODIUM,PORCINE 5,000 UNITS/ML VIAL SQ SCH ×3 (08:00→15:12)
[2022-02-11] MEDS: DIVALPROEX SODIUM 250 MG DR TABLET PO SCH ×2 (08:16→21:00)
[2022-02-11] MEDS: METOPROLOL SUCCINATE 25 MG ER TABLET PO SCH (08:16)
[2022-02-11] MEDS: AMOX TR/POT CLAV 875 MG/125 MG TABLET PO SCH ×2 (08:16→21:00)
[2022-02-11] MEDS: MULTIVITAMINS WITH MINERALS, THERAPEUTIC TABLET PO SCH (08:16)
[2022-02-11] MEDS: DOCUSATE SODIUM 100 MG CAPSULE PO SCH ×2 (08:16→21:00)
[2022-02-11] MEDS: SODIUM HYPOCHLORITE 0.25% [HALF STRENGTH] 473 ML SOLUTION TP SCH (08:18)
[2022-02-11 16:49] LABS: BASOPHILS % (AUTO) 0.8 % (0.0-2.0); EOSINOPHILS % (AUTO) 1.9 % (1.0-6.0); HEMATOCRIT 33.4 % (36-46); HEMOGLOBIN 10.8 g/dL (12.0-16.0); LYMPHOCYTES # (AUTO) 2.3 K/uL (1.0-4.8); LYMPHOCYTES % (AUTO) 43.3 % (22.0-44.0); MEAN CORPUSCULAR HEMOGLOBIN 29.9 pg (26.0-34.0); MEAN CORPUSCULAR HGB CONC 32.3 G/dL (31.0-37.0); MEAN CORPUSCULAR VOLUME 93 fL (80-100); MONOCYTES # (AUTO) 0.6 K/uL (0.1-1.0); NEUTROPHILS # (AUTO) 2.3 K/uL (1.8-7.7); PLATELET COUNT (AUTO) 292 K/uL (150-450); RED BLOOD CELL COUNT(AUTO) 3.61 MIL/uL (4.00-5.20); RED CELL DISTRIBUTION WIDTH 15.6 % (11.5-14.5)
[2022-02-11 17:09] LABS: ALANINE AMINOTRANSFERASE 27 U/L (12-78); ALBUMIN 2.2 g/dL (3.4-5.0); ALKALINE PHOSPHATASE 58 U/L (46-116); ANION GAP 10 mmol/L (8-16); ASPARTATE AMINOTRANSFERASE 21 U/L (15-37); BILIRUBIN,TOTAL 0.4 mg/dL (0.1-1.0); CALCIUM, TOTAL 10.2 mg/dL (8.8-10.5); CARBON DIOXIDE 26 mmol/L (22-29); CHLORIDE 106 mmol/L (98-107); CREATININE 0.67 mg/dL (0.60-1.30); GLUCOSE,RANDOM 88 mg/dL (70-110); POTASSIUM 3.7 mmol/L (3.5-5.1); SODIUM SERUM 142 mmol/L (136-145); TOTAL PROTEIN, SERUM 6.2 g/dL (6.4-8.2); UREA NITROGEN, BLOOD 7 mg/dL (7-18)
[2022-02-11 17:10] LABS: GLOMERULAR FILTR. RATE CALC > 60 mL/min (>60)
[2022-02-11] MEDS: OLANZapine 7.5 MG TABLET PO SCH (21:00)
[2022-02-12 04:26] VITALS: BP 142/75
[2022-02-12] MEDS: LEVOTHYROXINE SODIUM 50 MCG TABLET PO SCH (06:30)
[2022-02-12] MEDS: SODIUM CHLORIDE 0.9% 1,000 ML IV SCH ×2 (06:48→19:40)
[2022-02-12] MEDS: CLINDAMYCIN HCL 300 MG CAPSULE PO SCH ×4 (08:00→23:53)
[2022-02-12] MEDS: HEPARIN SODIUM,PORCINE 5,000 UNITS/ML VIAL SQ SCH ×4 (08:00→23:53)
[2022-02-12] MEDS: DOCUSATE SODIUM 100 MG CAPSULE PO SCH ×2 (08:37→20:21)
[2022-02-12] MEDS: AMOX TR/POT CLAV 875 MG/125 MG TABLET PO SCH ×2 (08:38→19:40)
[2022-02-12] MEDS: DIVALPROEX SODIUM 250 MG DR TABLET PO SCH ×2 (08:38→19:41)
[2022-02-12] MEDS: METOPROLOL SUCCINATE 25 MG ER TABLET PO SCH (08:38)
[2022-02-12] MEDS: MULTIVITAMINS WITH MINERALS, THERAPEUTIC TABLET PO SCH (08:38)
[2022-02-12] MEDS: SODIUM HYPOCHLORITE 0.25% [HALF STRENGTH] 473 ML SOLUTION TP SCH (08:39)
[2022-02-12 08:50] VITALS: BP 139/78
[2022-02-12 16:14] VITALS: BP 129/77
[2022-02-12] MEDS: OLANZapine 7.5 MG TABLET PO SCH (19:41)
[2022-02-12 20:14] VITALS: BP 144/65
[2022-02-13 04:00] VITALS: BP 137/67
[2022-02-13] MEDS: LEVOTHYROXINE SODIUM 50 MCG TABLET PO SCH (05:46)
[2022-02-13 08:00] VITALS: BP 117/67
[2022-02-13] MEDS: HEPARIN SODIUM,PORCINE 5,000 UNITS/ML VIAL SQ SCH ×3 (08:00→23:36)
[2022-02-13] MEDS: CLINDAMYCIN HCL 300 MG CAPSULE PO SCH (08:00)
[2022-02-13] MEDS: DOCUSATE SODIUM 100 MG CAPSULE PO SCH ×2 (08:35→20:25)
[2022-02-13] MEDS: AMOX TR/POT CLAV 875 MG/125 MG TABLET PO SCH ×2 (08:36→20:28)
[2022-02-13] MEDS: MULTIVITAMINS WITH MINERALS, THERAPEUTIC TABLET PO SCH (08:36)
[2022-02-13] MEDS: METOPROLOL SUCCINATE 25 MG ER TABLET PO SCH (08:36)
[2022-02-13] MEDS: DIVALPROEX SODIUM 250 MG DR TABLET PO SCH ×2 (08:36→20:28)
[2022-02-13] MEDS: SODIUM HYPOCHLORITE 0.25% [HALF STRENGTH] 473 ML SOLUTION TP SCH (08:37)
[2022-02-13] MEDS: SODIUM CHLORIDE 0.9% 1,000 ML IV SCH (08:39)
[2022-02-13] MEDS: OLANZapine 7.5 MG TABLET PO SCH (20:28)
[2022-02-14 04:05] VITALS: BP 134/68
[2022-02-14] MEDS: LEVOTHYROXINE SODIUM 50 MCG TABLET PO SCH (05:41)
[2022-02-14] MEDS: HEPARIN SODIUM,PORCINE 5,000 UNITS/ML VIAL SQ SCH ×2 (08:00→16:00)
[2022-02-14 08:06] VITALS: BP 130/75
[2022-02-14] MEDS: DOCUSATE SODIUM 100 MG CAPSULE PO SCH ×2 (09:00→20:25)
[2022-02-14] MEDS: DIVALPROEX SODIUM 250 MG DR TABLET PO SCH ×2 (09:00→20:25)
[2022-02-14] MEDS: MULTIVITAMINS WITH MINERALS, THERAPEUTIC TABLET PO SCH (09:00)
[2022-02-14] MEDS: METOPROLOL SUCCINATE 25 MG ER TABLET PO SCH (09:00)
[2022-02-14] MEDS: AMOX TR/POT CLAV 875 MG/125 MG TABLET PO SCH ×2 (09:00→20:25)
[2022-02-14] MEDS: SODIUM HYPOCHLORITE 0.25% [HALF STRENGTH] 473 ML SOLUTION TP SCH (10:13)
[2022-02-14 15:08] VITALS: BP 128/78
[2022-02-14 19:16] VITALS: BP 140/72
[2022-02-14] MEDS: BISACODYL 10 MG RECTAL RECTAL SUPPOSITORY PR PRN (20:24)
[2022-02-14] MEDS: OLANZapine 7.5 MG TABLET PO SCH (20:25)
[2022-02-14] MEDS ORDERED: SODIUM CL IRRIG SOLN BOTTLE 250 ML IRRIG ONE (21:06)
[2022-02-15 04:10] VITALS: BP 123/68
[2022-02-15] MEDS: LEVOTHYROXINE SODIUM 50 MCG TABLET PO SCH (06:19)
[2022-02-15] MEDS: HEPARIN SODIUM,PORCINE 5,000 UNITS/ML VIAL SQ SCH ×4 (08:00→23:45)
[2022-02-15 08:01] VITALS: BP 145/66
[2022-02-15] MEDS: DOCUSATE SODIUM 100 MG CAPSULE PO SCH ×2 (08:27→20:13)
[2022-02-15] MEDS: DIVALPROEX SODIUM 250 MG DR TABLET PO SCH ×2 (08:28→20:13)
[2022-02-15] MEDS: SODIUM HYPOCHLORITE 0.25% [HALF STRENGTH] 473 ML SOLUTION TP SCH (08:28)
[2022-02-15] MEDS: MULTIVITAMINS WITH MINERALS, THERAPEUTIC TABLET PO SCH (08:28)
[2022-02-15] MEDS: METOPROLOL SUCCINATE 25 MG ER TABLET PO SCH (08:28)
[2022-02-15] MEDS: AMOX TR/POT CLAV 875 MG/125 MG TABLET PO SCH ×2 (08:29→20:13)
[2022-02-15 15:15] VITALS: BP 139/69
[2022-02-15 19:54] VITALS: BP 122/67
[2022-02-15] MEDS: OLANZapine 7.5 MG TABLET PO SCH (20:13)
[2022-02-16 04:21] VITALS: BP 142/76
[2022-02-16] MEDS: LEVOTHYROXINE SODIUM 50 MCG TABLET PO SCH (05:36)
[2022-02-16] MEDS: HEPARIN SODIUM,PORCINE 5,000 UNITS/ML VIAL SQ SCH ×3 (08:00→23:57)
[2022-02-16] MEDS: AMOX TR/POT CLAV 875 MG/125 MG TABLET PO SCH ×2 (08:17→21:00)
[2022-02-16] MEDS: SODIUM HYPOCHLORITE 0.25% [HALF STRENGTH] 473 ML SOLUTION TP SCH (08:18)
[2022-02-16] MEDS: MULTIVITAMINS WITH MINERALS, THERAPEUTIC TABLET PO SCH (08:18)
[2022-02-16] MEDS: DIVALPROEX SODIUM 250 MG DR TABLET PO SCH ×2 (08:18→21:00)
[2022-02-16] MEDS: DOCUSATE SODIUM 100 MG CAPSULE PO SCH ×2 (08:18→20:40)
[2022-02-16] MEDS: METOPROLOL SUCCINATE 25 MG ER TABLET PO SCH (08:18)
[2022-02-16 08:40] VITALS: BP 140/74
[2022-02-16 15:17] VITALS: BP 143/77
[2022-02-16 19:40] VITALS: BP 130/73
[2022-02-16] MEDS: OLANZapine 7.5 MG TABLET PO SCH (21:00)
[2022-02-17 04:05] VITALS: BP 131/80
[2022-02-17] MEDS: LEVOTHYROXINE SODIUM 50 MCG TABLET PO SCH (06:20)
[2022-02-17] MEDS: HEPARIN SODIUM,PORCINE 5,000 UNITS/ML VIAL SQ SCH ×3 (08:00→23:33)
[2022-02-17] MEDS: DOCUSATE SODIUM 100 MG CAPSULE PO SCH ×2 (09:00→20:16)
[2022-02-17] MEDS: DIVALPROEX SODIUM 250 MG DR TABLET PO SCH ×2 (09:00→20:23)
[2022-02-17] MEDS: METOPROLOL SUCCINATE 25 MG ER TABLET PO SCH (09:00)
[2022-02-17] MEDS: MULTIVITAMINS WITH MINERALS, THERAPEUTIC TABLET PO SCH (09:00)
[2022-02-17] MEDS: AMOX TR/POT CLAV 875 MG/125 MG TABLET PO SCH ×2 (09:00→20:23)
[2022-02-17] MEDS: SODIUM HYPOCHLORITE 0.25% [HALF STRENGTH] 473 ML SOLUTION TP SCH (09:41)
[2022-02-17] MEDS: OLANZapine 7.5 MG TABLET PO SCH (20:23)
[2022-02-18] MEDS: LEVOTHYROXINE SODIUM 50 MCG TABLET PO SCH (05:58)
[2022-02-18] MEDS: HEPARIN SODIUM,PORCINE 5,000 UNITS/ML VIAL SQ SCH ×2 (08:00→15:22)
[2022-02-18] MEDS: AMOX TR/POT CLAV 875 MG/125 MG TABLET PO SCH ×2 (08:38→21:00)
[2022-02-18] MEDS: MULTIVITAMINS WITH MINERALS, THERAPEUTIC TABLET PO SCH (08:38)
[2022-02-18] MEDS: DIVALPROEX SODIUM 250 MG DR TABLET PO SCH ×2 (08:38→21:00)
[2022-02-18] MEDS: DOCUSATE SODIUM 100 MG CAPSULE PO SCH ×2 (08:38→21:00)
[2022-02-18] MEDS: SODIUM HYPOCHLORITE 0.25% [HALF STRENGTH] 473 ML SOLUTION TP SCH (08:39)
[2022-02-18] MEDS: METOPROLOL SUCCINATE 25 MG ER TABLET PO SCH (08:39)
[2022-02-18] MEDS: OLANZapine 7.5 MG TABLET PO SCH (21:00)
[2022-02-19 04:10] VITALS: BP 131/77
[2022-02-19] MEDS: LEVOTHYROXINE SODIUM 50 MCG TABLET PO SCH (06:30)
[2022-02-19] MEDS: HEPARIN SODIUM,PORCINE 5,000 UNITS/ML VIAL SQ SCH ×4 (08:00→23:11)
[2022-02-19] MEDS: DOCUSATE SODIUM 100 MG CAPSULE PO SCH ×2 (09:00→21:00)
[2022-02-19] MEDS: AMOX TR/POT CLAV 875 MG/125 MG TABLET PO SCH ×2 (09:00→21:00)
[2022-02-19] MEDS: METOPROLOL SUCCINATE 25 MG ER TABLET PO SCH (09:00)
[2022-02-19] MEDS: MULTIVITAMINS WITH MINERALS, THERAPEUTIC TABLET PO SCH (09:00)
[2022-02-19] MEDS: DIVALPROEX SODIUM 250 MG DR TABLET PO SCH ×2 (09:00→21:00)
[2022-02-19] MEDS: SODIUM HYPOCHLORITE 0.25% [HALF STRENGTH] 473 ML SOLUTION TP SCH (09:42)
[2022-02-19] MEDS: OLANZapine 7.5 MG TABLET PO SCH (21:00)
[2022-02-20] MEDS: LEVOTHYROXINE SODIUM 50 MCG TABLET PO SCH (06:30)
[2022-02-20] MEDS: HEPARIN SODIUM,PORCINE 5,000 UNITS/ML VIAL SQ SCH ×2 (08:00→15:53)
[2022-02-20] MEDS: METOPROLOL SUCCINATE 25 MG ER TABLET PO SCH (09:00)
[2022-02-20] MEDS: AMOX TR/POT CLAV 875 MG/125 MG TABLET PO SCH ×2 (09:00→20:17)
[2022-02-20] MEDS: DOCUSATE SODIUM 100 MG CAPSULE PO SCH ×2 (09:00→20:17)
[2022-02-20] MEDS: DIVALPROEX SODIUM 250 MG DR TABLET PO SCH ×2 (09:00→20:17)
[2022-02-20] MEDS: MULTIVITAMINS WITH MINERALS, THERAPEUTIC TABLET PO SCH (09:00)
[2022-02-20] MEDS: SODIUM HYPOCHLORITE 0.25% [HALF STRENGTH] 473 ML SOLUTION TP SCH (09:42)
[2022-02-20 20:11] VITALS: BP 134/72
[2022-02-20] MEDS: OLANZapine 7.5 MG TABLET PO SCH (20:17)
[2022-02-21] MEDS: LEVOTHYROXINE SODIUM 50 MCG TABLET PO SCH (06:30)
[2022-02-21] MEDS: HEPARIN SODIUM,PORCINE 5,000 UNITS/ML VIAL SQ SCH ×4 (08:00→23:20)
[2022-02-21] MEDS: METOPROLOL SUCCINATE 25 MG ER TABLET PO SCH (09:00)
[2022-02-21] MEDS: DOCUSATE SODIUM 100 MG CAPSULE PO SCH ×2 (09:00→20:14)
[2022-02-21] MEDS: AMOX TR/POT CLAV 875 MG/125 MG TABLET PO SCH ×2 (09:00→20:14)
[2022-02-21] MEDS: MULTIVITAMINS WITH MINERALS, THERAPEUTIC TABLET PO SCH (09:00)
[2022-02-21] MEDS: DIVALPROEX SODIUM 250 MG DR TABLET PO SCH ×2 (09:00→20:14)
[2022-02-21] MEDS: SODIUM HYPOCHLORITE 0.25% [HALF STRENGTH] 473 ML SOLUTION TP SCH (10:25)
[2022-02-21] MEDS: OLANZapine 7.5 MG TABLET PO SCH (20:14)
[2022-02-22] MEDS: LEVOTHYROXINE SODIUM 50 MCG TABLET PO SCH (06:30)
[2022-02-22] MEDS: HEPARIN SODIUM,PORCINE 5,000 UNITS/ML VIAL SQ SCH ×2 (08:00→16:00)
[2022-02-22] MEDS: AMOX TR/POT CLAV 875 MG/125 MG TABLET PO SCH ×2 (09:00→21:00)
[2022-02-22] MEDS: MULTIVITAMINS WITH MINERALS, THERAPEUTIC TABLET PO SCH (09:00)
[2022-02-22] MEDS: METOPROLOL SUCCINATE 25 MG ER TABLET PO SCH (09:00)
[2022-02-22] MEDS: DIVALPROEX SODIUM 250 MG DR TABLET PO SCH ×2 (09:00→21:00)
[2022-02-22] MEDS: DOCUSATE SODIUM 100 MG CAPSULE PO SCH ×2 (09:00→21:00)
[2022-02-22] MEDS: SODIUM HYPOCHLORITE 0.25% [HALF STRENGTH] 473 ML SOLUTION TP SCH (16:16)
[2022-02-22] MEDS: OLANZapine 7.5 MG TABLET PO SCH (21:00)
[2022-02-23] MEDS: LEVOTHYROXINE SODIUM 50 MCG TABLET PO SCH (05:43)
[2022-02-23] MEDS: HEPARIN SODIUM,PORCINE 5,000 UNITS/ML VIAL SQ SCH ×4 (08:00→23:44)
[2022-02-23] MEDS: DOCUSATE SODIUM 100 MG CAPSULE PO SCH ×2 (08:43→19:51)
[2022-02-23] MEDS: MULTIVITAMINS WITH MINERALS, THERAPEUTIC TABLET PO SCH (08:43)
[2022-02-23] MEDS: METOPROLOL SUCCINATE 25 MG ER TABLET PO SCH (08:43)
[2022-02-23] MEDS: DIVALPROEX SODIUM 250 MG DR TABLET PO SCH ×2 (08:43→19:53)
[2022-02-23] MEDS: AMOX TR/POT CLAV 875 MG/125 MG TABLET PO SCH ×2 (08:43→19:53)
[2022-02-23] MEDS: SODIUM HYPOCHLORITE 0.25% [HALF STRENGTH] 473 ML SOLUTION TP SCH (19:51)
[2022-02-23] MEDS: OLANZapine 7.5 MG TABLET PO SCH (19:53)
[2022-02-24] MEDS: LEVOTHYROXINE SODIUM 50 MCG TABLET PO SCH (06:53)
[2022-02-24] MEDS: HEPARIN SODIUM,PORCINE 5,000 UNITS/ML VIAL SQ SCH ×2 (08:00→16:00)
[2022-02-24] MEDS: AMOX TR/POT CLAV 875 MG/125 MG TABLET PO SCH ×2 (08:35→21:00)
[2022-02-24] MEDS: DOCUSATE SODIUM 100 MG CAPSULE PO SCH ×2 (08:35→21:00)
[2022-02-24] MEDS: METOPROLOL SUCCINATE 25 MG ER TABLET PO SCH (08:36)
[2022-02-24] MEDS: MULTIVITAMINS WITH MINERALS, THERAPEUTIC TABLET PO SCH (08:36)
[2022-02-24] MEDS: DIVALPROEX SODIUM 250 MG DR TABLET PO SCH ×2 (08:36→21:00)
[2022-02-24] MEDS: SODIUM HYPOCHLORITE 0.25% [HALF STRENGTH] 473 ML SOLUTION TP SCH (18:52)
[2022-02-24] MEDS: OLANZapine 7.5 MG TABLET PO SCH (21:00)
[2022-02-25] MEDS: LEVOTHYROXINE SODIUM 50 MCG TABLET PO SCH (05:56)
[2022-02-25] MEDS: HEPARIN SODIUM,PORCINE 5,000 UNITS/ML VIAL SQ SCH ×3 (08:00→16:00)
[2022-02-25] MEDS: DOCUSATE SODIUM 100 MG CAPSULE PO SCH ×2 (08:16→21:00)
[2022-02-25] MEDS: DIVALPROEX SODIUM 250 MG DR TABLET PO SCH ×2 (08:21→21:00)
[2022-02-25] MEDS: SODIUM HYPOCHLORITE 0.25% [HALF STRENGTH] 473 ML SOLUTION TP SCH (08:21)
[2022-02-25] MEDS: MULTIVITAMINS WITH MINERALS, THERAPEUTIC TABLET PO SCH (08:21)
[2022-02-25] MEDS: AMOX TR/POT CLAV 875 MG/125 MG TABLET PO SCH ×2 (08:21→21:00)
[2022-02-25] MEDS: METOPROLOL SUCCINATE 25 MG ER TABLET PO SCH (08:21)
[2022-02-25] MEDS: OLANZapine 7.5 MG TABLET PO SCH (21:00)
[2022-02-26] MEDS: LEVOTHYROXINE SODIUM 50 MCG TABLET PO SCH (05:50)
[2022-02-26] MEDS: HEPARIN SODIUM,PORCINE 5,000 UNITS/ML VIAL SQ SCH ×3 (08:00→16:00)
[2022-02-26] MEDS: DIVALPROEX SODIUM 250 MG DR TABLET PO SCH ×2 (08:38→20:43)
[2022-02-26] MEDS: METOPROLOL SUCCINATE 25 MG ER TABLET PO SCH (08:38)
[2022-02-26] MEDS: AMOX TR/POT CLAV 875 MG/125 MG TABLET PO SCH ×2 (08:38→20:42)
[2022-02-26] MEDS: MULTIVITAMINS WITH MINERALS, THERAPEUTIC TABLET PO SCH (08:38)
[2022-02-26] MEDS: DOCUSATE SODIUM 100 MG CAPSULE PO SCH ×2 (08:38→20:42)
[2022-02-26] MEDS: SODIUM HYPOCHLORITE 0.25% [HALF STRENGTH] 473 ML SOLUTION TP SCH (08:39)
[2022-02-26] MEDS: OLANZapine 7.5 MG TABLET PO SCH (20:43)
[2022-02-26 20:44] VITALS: BP 118/70
[2022-02-27 04:16] VITALS: BP 138/80
[2022-02-27] MEDS: LEVOTHYROXINE SODIUM 50 MCG TABLET PO SCH (06:49)
[2022-02-27] MEDS: HEPARIN SODIUM,PORCINE 5,000 UNITS/ML VIAL SQ SCH ×3 (08:00→15:11)
[2022-02-27] MEDS: MULTIVITAMINS WITH MINERALS, THERAPEUTIC TABLET PO SCH (09:00)
[2022-02-27] MEDS: DOCUSATE SODIUM 100 MG CAPSULE PO SCH ×2 (09:00→21:00)
[2022-02-27] MEDS: METOPROLOL SUCCINATE 25 MG ER TABLET PO SCH (09:00)
[2022-02-27] MEDS: AMOX TR/POT CLAV 875 MG/125 MG TABLET PO SCH ×2 (09:00→21:00)
[2022-02-27] MEDS: DIVALPROEX SODIUM 250 MG DR TABLET PO SCH ×2 (09:00→21:00)
[2022-02-27] MEDS: SODIUM HYPOCHLORITE 0.25% [HALF STRENGTH] 473 ML SOLUTION TP SCH (09:35)
[2022-02-27] MEDS: OLANZapine 7.5 MG TABLET PO SCH (21:00)
[2022-02-28] MEDS: LEVOTHYROXINE SODIUM 50 MCG TABLET PO SCH (06:02)
[2022-02-28 07:13] VITALS: BP 140/67
[2022-02-28] MEDS: HEPARIN SODIUM,PORCINE 5,000 UNITS/ML VIAL SQ SCH ×3 (08:00→16:00)
[2022-02-28] MEDS: METOPROLOL SUCCINATE 25 MG ER TABLET PO SCH (09:00)
[2022-02-28] MEDS: MULTIVITAMINS WITH MINERALS, THERAPEUTIC TABLET PO SCH (09:00)
[2022-02-28] MEDS: DIVALPROEX SODIUM 250 MG DR TABLET PO SCH ×2 (09:00→21:00)
[2022-02-28] MEDS: AMOX TR/POT CLAV 875 MG/125 MG TABLET PO SCH ×2 (09:00→21:00)
[2022-02-28] MEDS: DOCUSATE SODIUM 100 MG CAPSULE PO SCH ×2 (09:37→22:29)
[2022-02-28] MEDS: SODIUM HYPOCHLORITE 0.25% [HALF STRENGTH] 473 ML SOLUTION TP SCH (09:44)
[2022-02-28 16:35] VITALS: BP 150/77
[2022-02-28 20:00] VITALS: BP 122/69
[2022-02-28] MEDS: OLANZapine 7.5 MG TABLET PO SCH (21:00)
[2022-03-01 04:10] VITALS: BP 134/73
[2022-03-01] MEDS: LEVOTHYROXINE SODIUM 50 MCG TABLET PO SCH (06:15)
[2022-03-01] MEDS: HEPARIN SODIUM,PORCINE 5,000 UNITS/ML VIAL SQ SCH ×4 (08:00→23:30)
[2022-03-01 08:22] VITALS: BP 137/75
[2022-03-01] MEDS: AMOX TR/POT CLAV 875 MG/125 MG TABLET PO SCH ×2 (08:59→20:50)
[2022-03-01] MEDS: DOCUSATE SODIUM 100 MG CAPSULE PO SCH ×2 (08:59→20:47)
[2022-03-01] MEDS: METOPROLOL SUCCINATE 25 MG ER TABLET PO SCH (08:59)
[2022-03-01] MEDS: MULTIVITAMINS WITH MINERALS, THERAPEUTIC TABLET PO SCH (08:59)
[2022-03-01] MEDS: DIVALPROEX SODIUM 250 MG DR TABLET PO SCH ×2 (08:59→20:50)
[2022-03-01 15:43] VITALS: BP 131/68
[2022-03-01 20:51] VITALS: BP 143/68
[2022-03-01] MEDS: OLANZapine 7.5 MG TABLET PO SCH (20:51)
[2022-03-02 04:18] VITALS: BP 148/76
[2022-03-02] MEDS: LEVOTHYROXINE SODIUM 50 MCG TABLET PO SCH (05:43)
[2022-03-02 08:00] VITALS: BP 152/75
[2022-03-02] MEDS: HEPARIN SODIUM,PORCINE 5,000 UNITS/ML VIAL SQ SCH ×3 (08:00→23:32)
[2022-03-02] MEDS: SODIUM HYPOCHLORITE 0.25% [HALF STRENGTH] 473 ML SOLUTION TP SCH ×2 (08:20→08:22)
[2022-03-02] MEDS: AMOX TR/POT CLAV 875 MG/125 MG TABLET PO SCH ×2 (08:21→20:22)
[2022-03-02] MEDS: DIVALPROEX SODIUM 250 MG DR TABLET PO SCH ×2 (08:21→20:23)
[2022-03-02] MEDS: MULTIVITAMINS WITH MINERALS, THERAPEUTIC TABLET PO SCH (08:21)
[2022-03-02] MEDS: DOCUSATE SODIUM 100 MG CAPSULE PO SCH ×2 (08:21→20:23)
[2022-03-02] MEDS: METOPROLOL SUCCINATE 25 MG ER TABLET PO SCH (08:22)
[2022-03-02 15:33] VITALS: BP 170/89
[2022-03-02 19:43] VITALS: BP 136/61
[2022-03-02] MEDS: OLANZapine 7.5 MG TABLET PO SCH (20:23)
[2022-03-03 05:42] VITALS: BP 133/78
[2022-03-03] MEDS: LEVOTHYROXINE SODIUM 50 MCG TABLET PO SCH (06:14)
[2022-03-03] MEDS: HEPARIN SODIUM,PORCINE 5,000 UNITS/ML VIAL SQ SCH ×2 (08:00→15:23)
[2022-03-03 08:16] VITALS: BP 145/100
[2022-03-03] MEDS: DOCUSATE SODIUM 100 MG CAPSULE PO SCH ×2 (08:55→19:54)
[2022-03-03] MEDS: AMOX TR/POT CLAV 875 MG/125 MG TABLET PO SCH ×2 (08:56→21:00)
[2022-03-03] MEDS: MULTIVITAMINS WITH MINERALS, THERAPEUTIC TABLET PO SCH (08:56)
[2022-03-03] MEDS: DIVALPROEX SODIUM 250 MG DR TABLET PO SCH ×2 (08:56→21:00)
[2022-03-03] MEDS: METOPROLOL SUCCINATE 25 MG ER TABLET PO SCH (08:57)
[2022-03-03] MEDS: SODIUM HYPOCHLORITE 0.25% [HALF STRENGTH] 473 ML SOLUTION TP SCH (08:57)
[2022-03-03 15:33] VITALS: BP 153/66
[2022-03-03 19:26] VITALS: BP 139/77
[2022-03-03] MEDS: OLANZapine 7.5 MG TABLET PO SCH (21:00)
[2022-03-04 03:44] VITALS: BP 135/68
[2022-03-04] MEDS: LEVOTHYROXINE SODIUM 50 MCG TABLET PO SCH (06:18)
[2022-03-04 08:00] VITALS: BP 150/77
[2022-03-04] MEDS: HEPARIN SODIUM,PORCINE 5,000 UNITS/ML VIAL SQ SCH ×3 (08:00→15:14)
[2022-03-04] MEDS: AMOX TR/POT CLAV 875 MG/125 MG TABLET PO SCH ×2 (08:17→20:15)
[2022-03-04] MEDS: MULTIVITAMINS WITH MINERALS, THERAPEUTIC TABLET PO SCH (08:18)
[2022-03-04] MEDS: DIVALPROEX SODIUM 250 MG DR TABLET PO SCH ×2 (08:18→20:15)
[2022-03-04] MEDS: METOPROLOL SUCCINATE 25 MG ER TABLET PO SCH (08:22)
[2022-03-04] MEDS: SODIUM HYPOCHLORITE 0.25% [HALF STRENGTH] 473 ML SOLUTION TP SCH (08:22)
[2022-03-04] MEDS: DOCUSATE SODIUM 100 MG CAPSULE PO SCH ×2 (09:12→20:15)
[2022-03-04] MEDS ORDERED: AMOX1TAB16 PO (15:29)
[2022-03-04] MEDS ORDERED: DIVA250T4 PO (15:30)
[2022-03-04] MEDS ORDERED: DOCU-119 PO (15:31)
[2022-03-04] MEDS ORDERED: LEVO-108 PO (15:32)
[2022-03-04] MEDS ORDERED: METO25TA3 PO (15:34)
[2022-03-04] MEDS ORDERED: MULT-1239 PO (15:35)
[2022-03-04] MEDS ORDERED: OLAN15TA2 PO (15:36)
[2022-03-04] MEDS ORDERED: SODI473S21 TP (15:37)
[2022-03-04 15:58] VITALS: BP 139/74
[2022-03-04 19:37] VITALS: BP 158/78
[2022-03-04] MEDS: OLANZapine 7.5 MG TABLET PO SCH (20:15)
== END 2022-03-04 22:40 | disposition home health service (06) | DRG 70 ==
LOC: EMS 17:58 → 5S 20:57 → 6S 01-11 05:45
PROVIDERS: ADMIT Internal Medicine; ATTEND Internal Medicine
PROC: 05H933Z Insertion of Infusion Device into Right Brachial Vein, Percutaneous Approach (ICD-10-PCS; principal; 2021-12-27)
DX: G93.41 Metabolic encephalopathy (principal); L89.324 Pressure ulcer of left buttock, stage 4; N17.0 Acute kidney failure with tubular necrosis; M62.82 Rhabdomyolysis; E87.0 Hyperosmolality and hypernatremia; R65.10 Systemic inflammatory response syndrome (SIRS) of non-infectious origin without acute organ dysfunction; E87.1 Hypo-osmolality and hyponatremia; E87.2 Acidosis; D63.8 Anemia in other chronic diseases classified elsewhere; E83.39 Other disorders of phosphorus metabolism; E83.42 Hypomagnesemia; E86.0 Dehydration; E87.6 Hypokalemia; E83.52 Hypercalcemia; E87.8 Other disorders of electrolyte and fluid balance, not elsewhere classified; E03.9 Hypothyroidism, unspecified; F10.10 Alcohol abuse, uncomplicated; I12.9 Hypertensive chronic kidney disease with stage 1 through stage 4 chronic kidney disease, or unspecified chronic kidney disease; K59.00 Constipation, unspecified; L89.159 Pressure ulcer of sacral region, unspecified stage; I48.0 Paroxysmal atrial fibrillation; F25.9 Schizoaffective disorder, unspecified; F31.9 Bipolar disorder, unspecified; K70.9 Alcoholic liver disease, unspecified; N18.9 Chronic kidney disease, unspecified; R62.7 Adult failure to thrive; G89.29 Other chronic pain; Z20.822 Contact with and (suspected) exposure to COVID-19; M54.9 Dorsalgia, unspecified; Z53.20 Procedure and treatment not carried out because of patient's decision for unspecified reasons; Z90.710 Acquired absence of both cervix and uterus; Z91.19 Patient's noncompliance with other medical treatment and regimen; Z79.899 Other long term (current) drug therapy; Z88.5 Allergy status to narcotic agent; Z88.8 Allergy status to other drugs, medicaments and biological substances; Z90.49 Acquired absence of other specified parts of digestive tract; Z98.51 Tubal ligation status; Z68.32 Body mass index [BMI] 32.0-32.9, adult
CPT/HCPCS: 36245; 36569; 51702; 70450; 71045; 76700; 76937; 80048; 80053; 81001; 81002; 82040; 82043; 82140; 82550; 82570; 82962; 83735; 83970; 84100; 84132; 84145; 84156; 84300; 84443; 84484; 84540; 85025; 85610; 87070; 87081; 87086; 87205; 92522; 92526; 93005; 93306; 97110; 97116; 97162; 97530; 99291; C9113; G0480; J0282; J1160; J1644; J3475; J3480; J3490; J7050; J7060; 36415-L1; 36415-TC; 87077; X7700; Z7610